=== PATIENT | female | born 1945 | race Caucasian/White ===

== ENCOUNTER 2016-10-04 04:33 | Emergency (ER) | payer OTHER ==
[2016-10-04 04:43] VITALS: PULSE 57; TEMP 98; BMI 28.3
--- NOTE | 2016-10-04 05:01 | PDOC ---
History of Present Illness - General Chief Complaint: Pain, Acute Stated Complaint: BURNING PAIN IN LEFT THIGH Time Seen by Provider: 10/04/16 04:40 - History of Present Illness Initial Comments: 10/04/16 05:06 This 71-year-old woman with a history of hypertension, hyperlipidemia and anemia presents with a one-day history of left knee paresthesias. Patient awakened yesterday with feeling of burning/tingling in the back and lateral aspect of the left knee. No history of trauma or overuse. She was at a picnic the day before but did not have any knowledge of insect bite. No swelling/ redness/increased warmth noted in the area. No previous history of neuropathy/ paresthesias or numbness in any area of her body. No recent surgery/period of inactivity/malignancy. Patient is not on any estrogen supplementation and is not a smoker. She has no history of thromboembolism No shortness of breath/cough. No recent fever/chills/muscle aches or weakness Patient states that she stopped her antihypertensive medication approximately a week ago (after taking it for a few years) because it gave her stomach discomfort. Past History - Past Medical History Allergies/Adverse Reactions: Allergies Allergy/AdvReac Type Severity Reaction Status Date / Time No Known Allergies Allergy Verified 10/04/16 04:34 Home Medications: Ambulatory Orders NK [No Known Home Medication] 10/04/16 Anemia: Yes (DIAGNOSED 06/25/14.) Asthma: No Cancer: No Cardiac Disorders: No CVA: No COPD: No CHF: No Dementia: No Diabetes: No GI Disorders: Yes (ACID REFLUX.) Disorders: No HTN: Yes (RECENTLY STARTED AMLODIPINE) Hypercholesterolemia: Yes Liver Disease: No Seizures: No Thyroid Disease: No - Surgical History Abdominal Surgery: No Appendectomy: Yes Cardiac Surgery: No Cholecystectomy: No GI Surgery: Yes (3 COLONIC POLYPS REMOVED: 07/01/14.) Lung Surgery: No Neurologic Surgery: No Orthopedic Surgery: Yes (LEFT KNEE ARTHROSCOPY 2011) - Psycho/Social/Smoking Cessation Hx Anxiety: No Suicidal Ideation: No Smoking Status: No Smoking History: Never smoked Have you smoked in the past 12 months: No Number of Cigarettes Smoked Daily: 0 Cigars Per Day: 0 Hx Alcohol Use: No Drug/Substance Use Hx: No Substance Use Type: None Hx Substance Use Treatment: No Review of Systems - Review of Systems Able to Perform ROS?: Yes Comments:: 12 point review of systems is negative except for what is noted in the history of present illness *Physical Exam - Physical Exam Comments: GENERAL: Adult female, mildly anxious but in no acute distress HEAD: Normal with no signs of trauma. EYES: PERRLA, EOMI, sclera anicteric, conjunctiva clear. ENT: Ears normal, nares patent, oropharynx clear without exudates. Moist mucous membranes. NECK: Normal range of motion, supple without lymphadenopathy, JVD, or masses. LUNGS: Breath sounds equal, clear to auscultation bilaterally. No wheezes, and no crackles. HEART:Regular rate and rhythm, normal S1 and S2 without murmur, rub or gallop. ABDOMEN:.normal bowel sounds No guarding,tenderness or rebound.No masses No distention. EXTREMITIES: Left lower extremity: Mild fullness left popliteal region; no palpable masses or cords; No calf or thigh masses/ cords or tenderness Foot is warm and dry with excellent capillary refill; dorsalis pedis pulses briskly palpable at midfoot Scattered spider veins but no prominent varicosities evident Right lower extremity: No significant edema/tenderness/ cords NEUROLOGICAL: Cranial nerves II through XII grossly intact. Normal speech. No focal neurological deficits. MUSCULOSKELETAL: Back non-tender to palpation, no CVA tenderness Medical Decision Making - Medical Decision Making 71-year-old woman presents with sudden onset of burning pain/paresthesias in the lateral aspect of her left popliteal region. No history of trauma and no evidence of superficial wounds/insect bite in the area. On exam, area is not acutely inflamed/edematous/warm to touch. There is a subtle fullness to the popliteal area but no direct tenderness or cords. There is no demonstrable decreased sensation in any area of the left leg. Because of the fullness in the popliteal region and symptoms suggestive of nerve compression, Doppler duplex ultrasound of the left lower extremity ordered to evaluate for DVT or Mahoney's cyst. 10/04/16 06:33 physical therapist technician was attempted to be contacted starting at approximately 4: 30 a.m.. After multiple telephone calls with voicemail messages, photo optics technician returned call at 6:10 AM 10/04/16 06:38 Patient being transported to ultrasound for her Doppler extremity study 10/04/16 07:14 Doppler ultrasound negative for DVT. Patient will be discharged with instructions to avoid tight fitting clothes around area of lower legs and strenuous exercise the next few days. She should follow up with her PMD, Dr. Gaxiola within the next 2-3 days. She should return to the emergency room if she has increased pain/swelling/ redness of the area *DC/Admit/Observation/Transfer Diagnosis at time of Disposition: Paresthesia of left leg - Discharge Dispostion Disposition: HOME Condition at time of disposition: Stable - Referrals Referrals: Barron Gaxiola MD [Primary Care Provider] - 2 Days - Patient Instructions Printed Discharge Instructions: DI for Leg Pain Additional Instructions: Avoid strenuous activities for the next few days Elevate left leg; use loosefitting clothes as discussed Warm compresses to the area of discomfort Tylenol as needed Call Dr. Gaxiola today to make an appointment within the next 2-3 days
[2016-10-04 06:36] VITALS: BP 156/73
== END 2016-10-04 07:14 | disposition home or self-care (01) ==
LOC: FER 04:33
DX: R20.2 Paresthesia of skin (principal); I10 Essential (primary) hypertension; E78.5 Hyperlipidemia, unspecified; D64.9 Anemia, unspecified; K21.9 Gastro-esophageal reflux disease without esophagitis
CPT/HCPCS: 93971-TC; 99281-25

== ENCOUNTER 2016-10-13 04:39 | Emergency (ER) | payer OTHER ==
[2016-10-13 04:54] VITALS: TEMP 98.6
--- NOTE | 2016-10-13 05:27 | PDOC ---
History of Present Illness - General Chief Complaint: Pain Stated Complaint: ABD PAIN Time Seen by Provider: 10/13/16 05:25 - History of Present Illness Initial Comments: 10/13/16 06:21 71F with pmh of HTN on amlodipine, HLD, anemia and hiatal hernia presents with generalized pruritus for a week that originated from under her left popliteal fossa, and right upper quadrant burning sensation since yesterday unchanged with movement and uncorrelated to prandial state.. Patient was found at triage to be hypertensive 203/68, pulse of 48 and afebrile at 98.[address] Gaxiola PCP and ass. last week. Claims BP is usually in the 130's when she takes it at home, but higher when in presence of doctors Upon retaking BP: Right ych=735/73 Left arm: 165/82 Denies headache, nausea, vomiting, sob, chest pain, palpitations, weakness, abdominal pain per se, dysuria, constipation or diarrhea. No family history of polycythemia vera. 10/13/16 07:00 Past History - Past Medical History Allergies/Adverse Reactions: Allergies Allergy/AdvReac Type Severity Reaction Status Date / Time No Known Allergies Allergy Verified 10/13/16 04:52 Home Medications: Ambulatory Orders NK [No Known Home Medication] 10/04/16 Anemia: Yes (DIAGNOSED 06/25/14.) Asthma: No Cancer: No Cardiac Disorders: No CVA: No COPD: No CHF: No Dementia: No Diabetes: No GI Disorders: Yes (ACID REFLUX.) Disorders: No HTN: Yes (RECENTLY STARTED AMLODIPINE) Hypercholesterolemia: Yes Liver Disease: No Seizures: No Thyroid Disease: No - Surgical History Abdominal Surgery: No Appendectomy: Yes Cardiac Surgery: No Cholecystectomy: No GI Surgery: Yes (3 COLONIC POLYPS REMOVED: 07/01/14.) Lung Surgery: No Neurologic Surgery: No Orthopedic Surgery: Yes (LEFT KNEE ARTHROSCOPY 2011) - Psycho/Social/Smoking Cessation Hx Anxiety: No Suicidal Ideation: No Smoking Status: No Smoking History: Never smoked Have you smoked in the past 12 months: No Number of Cigarettes Smoked Daily: 0 Cigars Per Day: 0 Information on smoking cessation initiated: No Hx Alcohol Use: No Drug/Substance Use Hx: No Substance Use Type: None Hx Substance Use Treatment: No Review of Systems - Review of Systems Constitutional: No: Chills, Diaphoresis, Fever, Night Sweats, Weakness, Unexplained wgt Loss HEENTM: No: Symptoms Reported, Blurred Vision, Recent change in vision Respiratory: No: Symptoms reported, Cough, Shortness of Breath, Productive cough , Hemoptysis Cardiac (ROS): No: Edema, Palpitations, Syncope, Chest Tightness ABD/GI: No: Abdominal Distended, Constipated, Diarrhea, Vomiting, Indigestion : No: Symptoms Reported *Physical Exam - Vital Signs Last Vital Signs Temp Pulse Resp BP Pulse Ox 98.6 F 48 L 14 203/68 100 10/13/16 04:52 10/13/16 04:52 10/13/16 04:52 10/13/16 04:52 10/13/16 04:52 - Physical Exam General Appearance: Yes: Nourished, Appropriately Dressed. No: Apparent Distress HEENT: positive: EOMI, BEBA, Normal ENT Inspection, Normal Voice. negative: Scleral Icterus (R), Scleral Icterus (L) Neck: positive: Trachea midline. negative: Tender, Lymphadenopathy (R), Lymphadenopathy (L) Respiratory/Chest: positive: Lungs Clear, Normal Breath Sounds. negative: Chest Tender, Respiratory Distress, Accessory Muscle Use, Rapid RR, Decreased Breath Sounds, Crackles, Rales, Rhonchi, Stridor, Wheezing, Hyperresonant, Dullness, Plerual Rub Cardiovascular: positive: Regular Rhythm, S1, S2, Bradycardia. negative: Edema Vascular Pulses: Carotid (R): 3+, Carotid (L): 3+, Dorsalis-Pedis (R): 3+, Doralis-Pedis (L): 3+ Gastrointestinal/Abdominal: positive: Normal Bowel Sounds Extremity: negative: Swelling, Erythema Integumentary: positive: Normal Color, Dry. negative: Cyanotic, Jaundice, Mottled, Clammy, Diaphoresis, Moist, Petechiae, Rash, Swelling, Ecchymosis, Bruising Neurologic: positive: Fully Oriented, Alert, Normal Mood/Affect, Normal Response ED Treatment Course - LABORATORY CBC & Chemistry Diagram: 10/13/16 06:23 10/13/16 06:23 Medical Decision Making - Medical Decision Making 10/13/16 07:01 71F with pmh of HTN on amlodipine, HLD, anemia and hiatal hernia presents with generalized pruritus for a week that originated from under her left popliteal fossa, and right upper quadrant burning sensation since yesterday unchanged with movement and uncorrelated to prandial state.. Patient was found at triage to be hypertensive 203/68, pulse of 48 and afebrile at 98.[address] Gaxiola PCP and ass. last week. Claims BP is usually in the 130's when she takes it at home, but higher when in presence of doctors Upon retaking BP: Right obk=129/73 Left arm: 165/82 Labs lytes, billirubin pending.\ CXR pending Gallbladder pending 10/13/16 07:33 coags, amylase, cardiac profile, d-dimer pending Patient signed out to Dr.Daniel De Souza. *DC/Admit/Observation/Transfer Diagnosis at time of Disposition: Hypertensive urgency
--- NOTE | 2016-10-13 06:11 | PDOC ---
Attending Attestation - HPI HPI: 10/13/16 06:18 The patient is a 71 year old female with a PMHx of anemia, GERD, HTN, hypercholesterolemia who presents to the ED with RUQ burning and diffuse rash. Patient states that the burning sensation sometimes radiates to her back. On arrival, patients BP was high, but patient reports her BP is usually high around doctors. She saw her PCP last week and BP was normal. Denies chest pain, SOB. Denies nausea, vomiting, diarrhea. <Tammy Freeman - Last Filed: 10/13/16 06:39> - Resident Resident Name: Chaka Santiago - ED Attending Attestation I have performed the following: I have examined & evaluated the patient, The case was reviewed & discussed with the resident, I agree w/resident's findings & plan, Exceptions are as noted - Physicial Exam PE: 10/13/16 06:15 *Physical Exam General Appearance: Yes: Appropriately Dressed. No: Apparent Distress, Intoxicated HEENT: positive: EOMI, BEBA, Normal ENT Inspection, Normal Voice, TMs Normal, Pharynx Normal. negative: Pale Conjunctivae, Photophobia, Scleral Icterus (R), Scleral Icterus (L) Neck: positive: Trachea midline, Normal Thyroid, Supple. negative: Tender, Rigid, Carotid bruit, Stridor, Lymphadenopathy (R), Lymphadenopathy (L), Thyromegaly Respiratory/Chest: positive: Lungs Clear, Normal Breath Sounds. negative: Chest Tender, Respiratory Distress, Accessory Muscle Use, Labored Respiration, RES, Crackles, Rales, Rhonchi, Stridor, Wheezing, Dullness Cardiovascular: positive: Regular Rhythm, Regular Rate, S1, S2. negative: Edema , JVD, Murmur, Bradycardia, Tachycardia Vascular Pulses: Dorsalis-Pedis (R): 2+, Doralis-Pedis (L): 2+ Gastrointestinal/Abdominal: positive: Normal Bowel Sounds, Flat, Soft. negative : Tender, Organomegaly, Pulsatile Mass, Increased Bowel Sounds, Decreased BS, Distended, Guarding, Rebound, Hernia, Hepatomegaly, Spleenomegaly Lymphatic: negative: Adenopathy, Tenderness Musculoskeletal: positive: Normal Inspection. negative: CVA Tenderness, Decreased Range of Motion Extremity: positive: Normal Capillary Refill, Normal Inspection, Normal Range of Motion, Pelvis Stable. negative: Tender, Pedal Edema, Swelling, Erythema Integumentary: positive: Normal Color, Dry, Warm. negative: Cyanotic, Erythema , Jaundice, Rash Neurologic: positive: visiting housekeeper II-XII NML intact, Fully Oriented, Alert, Normal Mood/ Affect, Motor Strength 5/5. negative: EOM Palsy, Facial Droop, Sensory Deficit - Medical Decision Making 10/13/16 19:48 Pt admitted for further evaluation and care <Jorge A Vital - Last Filed: 10/13/16 19:49>
[2016-10-13 06:59] LABS: BASOPHIL 0.8 % (0-2.0); MCH 30.5 pg (25.7-33.7); MCHC 32.8 g/dl (32.0-36.0); MEAN CELL VOLUME 93.1 fl (80-96); MEAN PLT VOLUME 9.1 fl (7.5-11.1); PLATELET COUNT 206 K/MM3 (134-434); RDW 14.3 % (11.6-15.6); WHITE BLOOD COUNT 4.9 K/mm3 (4.0-10.0)
[2016-10-13 07:37] LABS: ALBUMIN 3.7 g/dl (3.4-5.0); ANION GAP 9 (8-16); BILIRUBIN,DIRECT 0.1 mg/dL (0.0-0.2); BILIRUBIN,TOTAL 0.4 mg/dL (0.2-1.0); CALCIUM 9.3 mg/dL (8.5-10.1); CO2 27 mmol/L (21-32); CREATININE 0.6 mg/dL (0.55-1.02); GLUCOSE,RANDOM 96 mg/dL (74-106); SGOT/AST 17 U/L (15-37); SGPT/ALT 25 U/L (12-78); TOT PROT 7.6 g/dl (6.4-8.2)
[2016-10-13 07:40] LABS: ALK PHOS 109 U/L (45-117); TROPONIN I < 0.02 ng/ml (0.00-0.05)
[2016-10-13 07:41] LABS: INR 1.01 (0.82-1.09)
[2016-10-13 07:44] LABS: ACTIVATED PTT 33.9 SECONDS (26.9-34.4); D-DIMER < 200 ng/ml (<200-235)
--- NOTE | 2016-10-13 07:44 | PDOC ---
*Physical Exam - Vital Signs Last Vital Signs Temp Pulse Resp BP Pulse Ox 98.6 F 47 L 18 175/68 97 10/13/16 04:52 10/13/16 07:10 10/13/16 07:10 10/13/16 07:10 10/13/16 07:10 - Physical Exam Comments: 10/13/16 10:46 General Appearance: Nourished. No Apparent Distress HEENT: No Pharyngeal Erythema, Tonsillar Exudate, Tonsillar Erythema Respiratory/Chest: Lungs Clear, Normal Breath Sounds. No Crackles, Rales, Rhonchi, Wheezing Cardiovascular: Regular Rhythm, Regular Rate. No Murmur, Gallop/S3, Gallop/S4 Gastrointestinal/Abdominal: Normal Bowel Sounds, Soft. No Guarding, Rebound, Tenderness Extremity: Normal Capillary Refill Integumentary: Normal Color, Dry, Warm Neurologic: Fully Oriented, Alert, Normal Mood/Affect, Normal Response Neurologic: positive: Fully Oriented, Alert, Normal Mood/Affect, Normal Response ED Treatment Course - LABORATORY CBC & Chemistry Diagram: 10/13/16 06:23 10/13/16 06:23 - ADDITIONAL ORDERS Additional order review: 10/13/16 06:23 RBC 4.79 D MCV 93.1 D MCHC 32.8 RDW 14.3 D MPV 9.1 Neutrophils % 47.0 Lymphocytes % 35.8 Monocytes % 12.4 H Eosinophils % 4.0 Basophils % 0.8 Progress Note - Progress Note Progress Note: Patient is a 71 year old female who presents with URQ burning abdominal pain. Work up has been negative thus far with negative labs and a negative URQ US. Patient had discrepancies between her right and left arm BPs with elevated BP. Chest radiograph was negative for widened mediastinum or acute process. Patient is still reporting burning pain in her abdomen. Medical Decision Making - Medical Decision Making 10/13/16 10:49 Patient is having continued pain, however work up has been negative thus far. Her symptoms are most likely due to increased acid production or GERD symptoms. We will treat with zantac and reevaluate the patient's pain. BP was remeasured in both arms and has improved. 10/13/16 12:26 Patient has continued pain despite treatment with zantac. We will obtain a CT abdomen/pelvis to evaluate for a source of her pain. 10/13/16 14:19 CT abdomen/pelvis demonstrates a gastric volvulus requiring surgical evaluation. We discussed the case with Dr. Gaxiola who would like us to consult Dr. Facundo oviedo for surgical evaluation. We discussed the results with the patient and her family. We will contact surgery to determine if they believe admission for evaluation is needed. 10/13/16 15:34 We discussed the case with Dr. Oviedo's office. 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 Given that the patient is not toxic appearing and is stable with a negative work up thus far and has a clinically benign exam, we are comfortable agreeing that the patient doesn't have a gastric volvulus and her symptoms may be due to progression of her hiatal hernia to a paraesophageal hernia. We will contact Dr. Gaxiola again to discuss the case and see if he is comfortable with the patient being discharged with follow up. 10/13/16 16:38 We discussed the case with Dr. Gaxiola who would be more comfortable with admitting the patient for observation with GI consultation and for surgery to evaluate her in the hospital. We will give a dose of protonix here in the ED to help manage her symptoms and admit the patient for observation with GI and surgery consultation. We discussed the plan and all the conversations with the patient and they are agreeable to the plan. 10/13/16 18:01 Discussed the patient with GI. GI consultation made aware. 10/13/16 20:12 Patient signed out to Dr. Almanza. Pending admission for observation. *DC/Admit/Observation/Transfer Diagnosis at time of Disposition: Gastric volvulus - Referrals Referrals: Barron Gaxiola MD [Primary Care Provider] - - Patient Instructions - Post Discharge Activity - Attestations Physician Attestion: 10/13/16 20:13 I, Dr. Noam De Souza, attest that this document has been prepared under my direction and personally reviewed by me in its entirety. I further attest, that it accurately reflects all work, treatment, procedures and medical decision -making performed by me.
[2016-10-13 10:01] VITALS: BP 148/78; PULSE 51
[2016-10-13 10:05] LABS: AMYLASE 54 U/L (25-115)
[2016-10-13] MEDS ORDERED: RANITIDINE HCL 150 MG TABLET (FP) PO ONE (10:14)
[2016-10-13] MEDS ORDERED: RANITIDINE HCL 150 MG TABLET (FP) ONE (10:31)
--- NOTE | 2016-10-13 11:51 | EKG ---
Test Reason : Blood Pressure : / mmHG Vent. Rate : 048 BPM Atrial Rate : 048 BPM P-R Int : 166 ms QRS Dur : 104 ms QT Int : 498 ms P-R-T Axes : 055 -19 023 degrees QTc Int : 444 ms SINUS BRADYCARDIA OTHERWISE NORMAL ECG WHEN COMPARED WITH ECG OF 02-JUL-2014 10:51, NO SIGNIFICANT CHANGE WAS FOUND Confirmed by GABRIEL DIOP MD ([id number]) on 10/13/2016 11:51:00 AM Referred By: Confirmed By:GABRIEL DIOP MD
[2016-10-13] MEDS ORDERED: PANTOPRAZOLE SODIUM 40 MG in SODIUM CHLORIDE 100 ML IVPB ONE (16:21)
[2016-10-13] MEDS ORDERED: PANTOPRAZOLE SODIUM 100 ML IVPB ONE (16:43)
--- NOTE | 2016-10-13 21:03 | CONSULT ---
Consultation: REQUESTING PROVIDER: Dr. Gaxiola CONSULT REQUEST: We have been asked to medically evaluate this patient for Paraesophageal hernia. HISTORY OF PRESENT ILLNESS: Patient is a 71 year old female with a PMHx of HTN, HLD, anemia, hiatal hernia who presented to the ED with RUQ abdominal pain described as a burning sensation that started yesterday and gradually worsened today, which prompted this ED visit. Patient reports the pain is exacerbated after meals and any movement. Patient does report a history of hiatal hernia that her PCP follows up with. Patient in the ED was given Protonix and Zantac with significant relief of symptoms. Patient was initially found to have a BP of 203/68 but was rechecked and went down to 148/78 without any medications. Patient otherwise denies headaches, dizziness, nausea, vomiting, weakness, dysuria, hematuria, constipation, diarrhea, shortness of breath, palpitations. REVIEW OF SYSTEMS: (-) fever, chills, nausea, vomiting, chest pain, palpitations, lightheadedness, dizziness, constipation, seizures, dysuria, hematuria, frequency (+) RUQ abdominal pain PHYSICAL EXAMINATION Vital Signs - 24 hr 10/13/16 10/13/16 10/13/16 04:52 06:25 06:33 Temperature 98.6 F Pulse Rate 48 L Pulse Rate [ Right Apical] Pulse Rate [ Right] Respiratory 14 Rate Blood Pressure 203/68 00/0 Blood Pressure 165/82 [Left Arm] Blood Pressure 213/73 [Right Arm] O2 Sat by Pulse 100 Oximetry (%) 10/13/16 10/13/16 07:10 10:00 Temperature Pulse Rate Pulse Rate [ 47 L Right Apical] Pulse Rate [ 51 L Right] Respiratory 18 16 Rate Blood Pressure Blood Pressure 148/78 [Left Arm] Blood Pressure 175/68 177/65 [Right Arm] O2 Sat by Pulse 97 96 Oximetry (%) GENERAL: Awake, alert, and fully oriented, in no acute distress. HEAD: Normal with no signs of trauma. EYES: Pupils equal, round and reactive to light, extraocular movements intact, sclera anicteric, conjunctiva clear. EARS, NOSE, THROAT: Oropharynx clear without exudates. Moist mucous membranes. NECK: Normal range of motion. LUNGS: Breath sounds equal, clear to auscultation bilaterally. No wheezes, and no crackles. No accessory muscle use. HEART: Regular rate and rhythm, normal S1 and S2 without murmur, rub or gallop. ABDOMEN: Soft, nontender, not distended, normoactive bowel sounds, no guarding, no rebound, no masses. No hepatomegaly or splenomegaly. LOWER EXTREMITIES: 2+ pulses, warm, well-perfused. No calf tenderness. No peripheral edema. Laboratory Results - last 24 hr 10/13/16 10/13/16 10/13/16 06:23 06:23 06:23 WBC 4.9 RBC 4.79 D Hgb 14.6 D Hct 44.6 D MCV 93.1 D MCH 30.5 D MCHC 32.8 RDW 14.3 D Plt Count 206 D MPV 9.1 Neutrophils % 47.0 Lymphocytes % 35.8 Monocytes % 12.4 H Eosinophils % 4.0 Basophils % 0.8 INR 1.01 PTT (Actin FS) 33.9 D-Dimer < 200 Sodium 141 Potassium 4.2 Chloride 105 Carbon Dioxide 27 Anion Gap 9 BUN 12 Creatinine 0.6 Creat Clearance w eGFR > 60 Random Glucose 96 D Calcium 9.3 Total Bilirubin 0.4 Direct Bilirubin 0.1 AST 17 ALT 25 D Alkaline Phosphatase 109 Creatine Kinase 59 Troponin I < 0.02 Total Protein 7.6 Albumin 3.7 Total Amylase 54 ASSESSMENT/PLAN: Patient is a 71 year old female with a PMHx of HTN, HLD, anemia, hiatal hernia who presented for abdominal pain. CT abdomen/Pelvis done and revealed gastric volvulus and a surgical consult was placed for Dr. Facundo Castañeda for surgical evaluation. Dr. 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 Patient currently offers no complaints and reports resolution of symptoms. Vitals are stable, patient appears in no distress with no signs of infection. Medicine Attending, Dr. Ledesma discussed case with PCP Dr. Gaxiola about recommendations by surgery for outpatient follow up. Patient was advised to follow up as outpatient with surgery and to make an appointment by next week for monitoring and repeat CT if pain returns. Dispo: Thank you for this consultative opportunity. Visit type - Emergency Visit Emergency Visit: Yes Care time: The patient presented to the Emergency Department on the above date and was hospitalized for further evaluation of their emergent condition. - New Patient This patient is new to me today: Yes Date on this admission: 10/14/16 - Critical Care Critical Care patient: No
--- NOTE | 2016-10-13 21:04 | PDOC ---
*Physical Exam - Vital Signs Last Vital Signs Temp Pulse Resp BP Pulse Ox 98.6 F 51 L 16 148/78 96 10/13/16 04:52 10/13/16 10:00 10/13/16 10:00 10/13/16 10:00 10/13/16 10:00 - Physical Exam Comments: 10/13/16 22:33 GENERAL: Awake, alert, and fully oriented, in no acute distress HEAD: No signs of trauma, normocephalic, atraumatic EYES: PERRLA, EOMI, sclera anicteric, conjunctiva clear ENT: Auricles normal inspection, hearing grossly normal, nares patent, oropharynx clear without exudates. Moist mucosa NECK: Normal ROM, supple, no lymphadenopathy, JVD, or masses LUNGS: No distress, speaks full sentences, clear to auscultation bilaterally HEART: Regular rate and rhythm, normal S1 and S2, no murmurs, rubs or gallops, peripheral pulses normal and equal bilaterally. ABDOMEN: Soft, nontender, normoactive bowel sounds. No guarding, no rebound. No masses EXTREMITIES: Normal inspection, Normal range of motion, no edema. No clubbing or cyanosis. NEUROLOGICAL: Cranial nerves II through XII grossly intact. Normal speech, normal gait, no focal sensorimotor deficits SKIN: Warm, Dry, normal turgor, no rashes or lesions noted. ED Treatment Course - LABORATORY CBC & Chemistry Diagram: 10/13/16 06:23 10/13/16 06:23 - ADDITIONAL ORDERS Additional order review: Laboratory Results 10/13/16 06:23 Sodium 141 Potassium 4.2 Chloride 105 Carbon Dioxide 27 Anion Gap 9 BUN 12 Creatinine 0.6 Creat Clearance w eGFR > 60 Random Glucose 96 D Calcium 9.3 Total Bilirubin 0.4 Direct Bilirubin 0.1 AST 17 ALT 25 D Alkaline Phosphatase 109 Creatine Kinase 59 Troponin I < 0.02 Total Protein 7.6 Albumin 3.7 Total Amylase 54 10/13/16 06:23 RBC 4.79 D MCV 93.1 D MCHC 32.8 RDW 14.3 D MPV 9.1 Neutrophils % 47.0 Lymphocytes % 35.8 Monocytes % 12.4 H Eosinophils % 4.0 Basophils % 0.8 - RADIOLOGY Radiograph Interpretation: 10/13/16 22:40 EXAM#: TYPE/EXAM: RESULT: [id number] CT/ABDOMEN PELVIS CT WITH CONTR CT abdomen and pelvis with intravenous contrast Comparison studies : None CLINICAL HISTORY: Right upper quadrant abdominal pain Axial imaging completed with coronal and sagittal reformations after bolus injection 95 cc Omnipaque 350 with a power injector. Normal images through the lung bases with no infiltrate, nodule or effusion. No free air or pneumatosis with no signs of bowel obstruction, no abdominal wall or inguinal hernia identified Complete intrathoracic position of the stomach is identified with no evidence of gastric outlet obstruction, no gastric wall thickening and no edema or fluid within the hiatal hernia sac. Normal position of the duodenal bulb and region of pylorus, presence of gastric volvulus identified within the hernia sac. Surgical evaluation recommended. Diffuse hepatic steatosis with no enhancing lesion and normal region of gallbladder and bile ducts including pancreas and spleen Normal visualization of the large and small bowel with no ascites or mesenteric edema, no signs of small bowel obstruction Normal region of uterus and adnexa Normal midline urinary bladder No pelvic ascites Symmetric enhancement of both kidneys with no hydronephrosis or adrenal nodules identified No fluid in Link's pouch identified IMPRESSION: CT findings demonstrating intrathoracic position of the stomach with findings of gastric volvulus identified, surgical evaluation recommended. No evidence of small bowel obstruction. Clinical correlation. - Medications Given in the ED: ED Medications Discontinued Medications Generic Name Dose Route Start Last Admin Trade Name Freq PRN Reason Stop Dose Admin Pantoprazole Sodium 40 mg/ 100 mls @ 200 mls/hr 10/13/16 16:21 10/13/16 16:50 Sodium Chloride IVPB 10/13/16 16:50 200 mls/hr ONCE ONE Administration Ranitidine HCl 150 mg 10/13/16 10:14 10/13/16 10:30 Zantac - PO 10/13/16 10:15 150 mg ONCE ONE Administration Progress Note - Progress Note Progress Note: 71 yo F with h/o hiatal hernia who presents with abdominal pain. Pt ednorses 2 day h/o RUQ burning and absent associated symptoms per handoff by Dr. De Souza. Pt. received full laboratory and imaging workup. Currently stable, with 2/10 pain. Denies fevers/chills, hematemesis, blood in stool, urinary complaints. Medical Decision Making - Medical Decision Making 10/13/16 22:37 71 yo F with h/o hiatal hernia who presents with abdominal pain. Pt. reports 2 day h/o epigastric pain. HS and PE unremarkable. CBC, CMP, INR, D-dimer unremarkable. RUQ U/S unremarkable CT ABDOMEN/PELVIS: Impression CT findings demonstrating intrathoracic position of the stomach with findings of gastric volvulus identified, surgical evaluation recommended. No evidence of small bowel obstruction. Clinical correlation. Dr. Gaxiola discusses concern with pt. and believes that should be admitted for observation. Dr. Castañeda's interpreation of imaging is that pt. has progression of hiatal hernia to paraesophogeal hernia as opposed to volvulus. D/t pt's clinical stability and unremarkable physical exam it was discussed that pt. will be able to be managed on an outpatient basis. Dr. Ledesma ( hospitalist) discussed with Dr. Castañeda ( surgery) that pt. does not meet criteria for admission and it is agreed that pt. will be discharged and f/u as outpatient. Discussed with Dr. Smallwood ( surgery) that pt. can be discharged and follow up as outpatient with Dr. Castañeda *DC/Admit/Observation/Transfer Diagnosis at time of Disposition: Gastric volvulus - Discharge Dispostion Condition at time of disposition: Improved Admit: No - Prescriptions Prescriptions: Pantoprazole Sodium [Protonix] 40 mg PO DAILY #14 tablet.[address] RODRIGUEZ 40 mg - Patient Instructions Printed Discharge Instructions: DI for Hiatal Hernia, DI for Gastritis Additional Instructions: Please return to ED if you experience severe abdominal pain, lightheadedness, fevers/chills, or worsening symptoms. Take Protonix as prescribed. Please follow up with Dr. Castañeda as outpatient. Thank you for your patience. I apologize for the long wait and I hope your symptoms improve. Print Language: SWEDISH - Post Discharge Activity - Attestations Physician Attestion: I, Dr. Fidencio Almanza, attest that this document has been prepared under my direction and personally reviewed by me in its entirety. I further attest, that it accurately reflects all work, treatment, procedures and medical decision -making performed by me.
--- NOTE | 2016-10-14 10:27 | PN ---
Progress Note (short form) - Note Progress Note: Surgery Asked about management of paraesophageal hernia with possible gastric volvulus component yesterday. I advised that if patient required admission and inpatient urgent surgery, would need to be managed by thoracic surgery. Advised that if patient was deemed able to be managed as outpt we could evaluate electively for laparoscopic paraesophageal hernia repair. Dr. Stephen was later notified that the patient was being discharged and did not require inpatient urgent care.
== END 2016-10-13 22:25 | disposition home or self-care (01) ==
LOC: JER 04:39
PROC: 3E033GC Introduction of Other Therapeutic Substance into Peripheral Vein, Percutaneous Approach (ICD-10-PCS; principal; 2016-10-13)
DX: K44.9 Diaphragmatic hernia without obstruction or gangrene (principal); I10 Essential (primary) hypertension; E78.00 Pure hypercholesterolemia, unspecified; K21.9 Gastro-esophageal reflux disease without esophagitis
CPT/HCPCS: 36415; 71020-TC; 74177-TC; 76705-TC; 80053; 82150; 82248; 82550; 84484; 85025; 85379; 85610; 85730; 93005; 93010; 99283-25

== ENCOUNTER 2017-12-09 11:04 | Emergency (ER) | payer OTHER ==
[2017-12-09 11:20] VITALS: PULSE 54; TEMP 98.4; BMI 28.1
[2017-12-09] MEDS ORDERED: KETOROLAC TROMETHAMINE 30 MG/1 ML VIAL IM ONE (11:32)
[2017-12-09] MEDS ORDERED: KETOROLAC TROMETHAMINE 30 MG/1 ML VIAL ONE (11:35)
--- NOTE | 2017-12-09 11:38 | PDOC ---
History of Present Illness - General Chief Complaint: Pain Stated Complaint: LEFT KNEE PAIN Time Seen by Provider: 12/09/17 11:31 History Source: Patient Exam Limitations: No Limitations - History of Present Illness Initial Comments: 12/09/17 11:31 This is a 72 YOF with h/o bilateral knee osteoarthritis with arthroscopy in 2017 (follows with Dr. David), hiatal hernia repair, and HTN (on amlodipine) who p/w 2 weeks left knee pain and swelling, acutely worsened since last night. She was seen by Dr. David 8 days ago for the same knee pain and swelling. He did an X-ray showing osteoarthritis, gave her diclofenac cream and instructed her to ice the knee as well, and explained that she will need cortisone injections if those therapies did not work. She has been doing the therapies as instructed, and her pain level was tolerable at home until last night when it worsened significantly and kept her from sleeping. She has not taken any PO medications for the pain (states these medications upset her stomach). She has never had this happen to her knee prior to the past 2 weeks. She has not been overusing the knee (only has been walking around her home) and has not fallen or injured herself. She did not call Dr. David yesterday because her pain worsened after his office had already closed. She will be able to follow up with him on Monday, but needs help getting through the weekend. She denies f/c/n /v/d/c, headache, lightheadedness, dizziness, rash, n/t/w, calf pain, hip pain, or ankle pain. Past History - Past Medical History Allergies/Adverse Reactions: Allergies Allergy/AdvReac Type Severity Reaction Status Date / Time No Known Allergies Allergy Verified 12/09/17 11:11 Home Medications: Ambulatory Orders Amlodipine Besylate [Norvasc -] 7.5 mg PO DAILY 12/09/17 Cholecalciferol (Vitamin D3) [Vitamin D3] 1,000 unit PO DAILY 12/09/17 Diclofenac Sodium 1 applic TP DAILY 12/09/17 Multivit-Min/Iron/Folic/Lutein [Centrum Silver Women Tablet] 1 each PO DAILY Anemia: Yes (DIAGNOSED 06/25/14.) Asthma: No Cancer: No Cardiac Disorders: No CVA: No COPD: No CHF: No Dementia: No Diabetes: No GI Disorders: Yes (ACID REFLUX.) Disorders: No HTN: Yes Hypercholesterolemia: Yes Liver Disease: No Seizures: No Thyroid Disease: No Other medical history: ARTHRITIC KNEE - Surgical History Abdominal Surgery: Yes (HIATAL HERNIA) Appendectomy: Yes (AGE 13) Cardiac Surgery: No Cholecystectomy: No GI Surgery: Yes (3 COLONIC POLYPS REMOVED: 07/01/14.) Lung Surgery: No Neurologic Surgery: No Orthopedic Surgery: Yes (LEFT KNEE ARTHROSCOPY 2011) - Suicide/Smoking/Psychosocial Hx Smoking Status: No Smoking History: Never smoked Have you smoked in the past 12 months: No Number of Cigarettes Smoked Daily: 0 Cigars Per Day: 0 Hx Alcohol Use: Yes Drug/Substance Use Hx: No Substance Use Type: None Hx Substance Use Treatment: No Review of Systems - Review of Systems Able to Perform ROS?: Yes Constitutional: No: Chills, Fever, Unexplained wgt Loss HEENTM: No: Nose Congestion, Throat Pain Respiratory: No: Cough, Shortness of Breath Cardiac (ROS): No: Chest Pain, Palpitations ABD/GI: No: Constipated, Diarrhea, Nausea, Vomiting : No: Burning, Dysuria Musculoskeletal: Yes: Joint Pain, Joint Swelling. No: Back Pain, Neck Pain Integumentary: No: Bruising, Rash Neurological: No: Headache, Numbness, Tingling, Weakness, Dizziness Endocrine: No: Unexplained Weight Gain, Unexplained Weight Loss *Physical Exam - Vital Signs Last Vital Signs Temp Pulse Resp BP Pulse Ox 98.4 F 54 L 16 184/69 99 12/09/17 11:04 12/09/17 11:04 12/09/17 11:04 12/09/17 11:04 12/09/17 11:04 12/09/17 11:42 GENERAL: nontoxic and well-appearing older adult female accompanied by her , nourished, A/Ox4, no acute distress, speaking in full sentences, answers questions appropriately HEENT: PERRLA, EOMI, moist mucous membranes, no posterior pharyngeal erythema, no tonsillar swelling or exudates, no cervical lymphadenopathy NECK: No midline ttp, no spinal stepoff or deformity, full ROM, supple CARDIOVASCULAR: Regular rate and rhythm, normal S1S2, MGR, radial and DP pulses 2+ and symmetric, capillary refill <2 seconds, extremities warm and well- perfused LUNGS/RESPIRATORY: No respiratory distress, normal and symmetric chest movements during respirations, lungs CTA bilaterally, equal breath sounds, no cyanosis, no nail clubbing GI/ABDOMEN: Normal symmetric appearance, normoactive bowel sounds, soft, no tenderness to palpation, no midline pulsatile masses, no palpated organomegaly : No CVA tenderness BACK: No midline ttp or stepoff or deformity of thoracic or lumbar spine EXTREMITIES: Left knee with effusion +ballotment, negative Geetha test, negative anterior and posterior drawers, no ligamentous instability on varus and valgus stress, application of varus stress reproduces chief complaint on lateral joint line (patient points), distal pulses 2+, warm and well-perfused, no pitting edema, distal NV intact, no palpable marion cyst, no skin changes overlying the knee SKIN: Warm and dry, no pallor, no jaundice, no bruising, no rash, no skin breakdown, no cuts, no lesions NEUROLOGICAL: GCS 15, CN II-XII grossly intact, ambulating with normal gait, moving all extremities, 5/5 strength proximally and distally, no facial droop, no decreased sensation Medical Decision Making - Medical Decision Making 12/09/17 11:41 Pt p/w knee pain and swelling. Initial Vital Signs Temp Pulse Resp BP Pulse Ox 98.4 F 54 L 16 184/69 99 12/09/17 11:04 12/09/17 11:04 12/09/17 11:04 12/09/17 11:04 12/09/17 11:04 Exam: As noted in Physical Exam section. DDX IBNLT: effusion (e.g. 2/2 osteoarthritis, overuse), gout, pseudogout, prepatellar bursitis, septic arthritis, hemarthrosis, edema (e.g. from CHF exacerbation or PVD), gonorrhea, necrotizing soft tissue infection, DVT, superficial venous thrombosis, popliteal cyst (wwo rupture), etc. W/U ordered: None TX ordered: Toradol 30 mg IM Reassessment: Patient states pain improved, feels comfortable going home. Vital Signs Temperature 98.4 F 12/09/17 11:04 Pulse Rate 54 L 12/09/17 11:04 Respiratory Rate 16 12/09/17 11:04 Blood Pressure 153/66 12/09/17 11:56 O2 Sat by Pulse Oximetry (%) 99 12/09/17 11:04 DISCHARGE This patient has gotten significant relief of symptoms while in the ED. On last reassessment, vitals are wnl, pain is reasonably controlled, and exam is benign. Workup is not concerning for emergency-level pathology at this time. This patient is appropriate for discharge with close outpatient follow up. They are comfortable with this plan and will follow up Dr. David on Monday. Specific return precautions are discussed and they will come back to the ER if necessary. *DC/Admit/Observation/Transfer Diagnosis at time of Disposition: Osteoarthritis of left knee Qualifiers: Osteoarthritis type: unspecified Qualified Code(s): M17.12 - Unilateral primary osteoarthritis, left knee - Discharge Dispostion Disposition: HOME Condition at time of disposition: Improved Decision to Admit order: No - Referrals Referrals: Barron Gaxiola MD [Primary Care Provider] - Donte David MD [Staff Physician] - - Patient Instructions Printed Discharge Instructions: DI for Knee Pain Additional Instructions: YOU WERE SEEN IN THE ER FOR KNEE PAIN AND SWELLING. WE DID A THOROUGH HISTORY AND PHYSICAL EXAM. WE GAVE YOU A TORADOL PAIN MEDICATION INJECTION WHICH HELPED WITH THE PAIN HERE IN THE ER. AFTER OUR ASSESSMENT, WE DO NOT BELIEVE YOU ARE HAVING A MEDICAL EMERGENCY AT THIS TIME, AND WE BELIEVE YOU ARE SAFE TO GO HOME. USE RICE THERAPY (REST, ICE, COMPRESSION, ELEVATION) AND TAKE TYLENOL OR MOTRIN FOR THE PAIN. YOU MAY WISH TO TAKE AN ANTACID LIKE MAALOX IF THESE MEDICATIONS TEND TO BE HARD ON YOUR STOMACH. YOU MAY USE CRUTCHES AND/OR A KNEE BRACE FOR YOUR COMFORT LEVEL, BUT THIS IS NOT NECESSARY. PLEASE FOLLOW UP WITH DR. DAVID TO DISCUSS THE CORTISONE INJECTIONS AND FURTHER PAIN MANAGEMENT. CALL THEIR CLINIC SOON POSSIBLE ON MONDAY MORNING, TELL THEM YOU WERE SEEN IN THE ER, AND TELL THEM YOU NEED AN APPOINTMENT. IF YOU HAVE ANY NEW OR WORSENING SYMPTOMS, ESPECIALLY WORSENING OR SEVERE PAIN OF THE KNEE, REDNESS TO THE SKIN, INABILITY TO WALK, OR FEVERS, PLEASE COME BACK TO THE ER AT ANY TIME ( 24 HOURS A DAY). IF YOU ARE HAVING SEVERE OR LIFE THREATENING SYMPTOMS, OR SYMPTOMS THAT MAKE IT UNSAFE TO DRIVE OR HAVE SOMEONE DRIVE YOU, PLEASE CALL 911. - Post Discharge Activity
[2017-12-09 11:57] VITALS: BP 153/66
--- NOTE | 2017-12-09 12:01 | PDOC ---
Attending Attestation - Resident Resident Name: ShelleyToma - ED Attending Attestation I have performed the following: I have examined & evaluated the patient, The case was reviewed & discussed with the resident, I agree w/resident's findings & plan, Exceptions are as noted - HPI HPI: 12/09/17 11:57 72-year-old female history of hypertension and arthritis followed by Dr. Arzate the orthopedist here today complaining of left knee pain. Patient was seen in the office of the orthopedist one week ago at that time was started on diclofenac and recommended that if that fails she would get steroid injections into the joint. Suddenly today she started having worsening pain for the orthopedist but it was is. Patient denies any fevers chills pain is worse with weightbearing and bending she is currently using a cane for assistance states she does not take any medication for pain and she does not like taking pills. No injury no leg swelling noted - Physicial Exam PE: 12/09/17 11:59 Awake alert no acute distress cardiac exam is normal 30 murmurs rubs or gallops abdomen is soft and nontender lungs are clear bilaterally. Extremity exam reveals no peripheral edema. The left knee is noted for a small effusion mild tenderness to the inferior lateral aspect of the infrapatellar region no crepitus no ecchymosis no erythema no warmth hip and ankle is nontender full range of motion. 2+ DP pulses bilaterally - Medical Decision Making 12/09/17 12:00 80-year-old female with known arthritis here today with worsening left knee pain likely due to an arthritic effusion. There are no current signs of warmth or erythema to suggest infectious causes patient denies any trauma. Has had imaging of an x-ray one week ago therefore repeat imaging is not warranted today will follow up with Dr. Arzate her orthopedist in 48 hours given Toradol shot and recommended Tylenol every 6 hours as needed for pain
== END 2017-12-09 12:00 | disposition home or self-care (01) ==
LOC: FER 11:04
PROC: 3E0233Z Introduction of Anti-inflammatory into Muscle, Percutaneous Approach (ICD-10-PCS; principal; 2017-12-09)
DX: M17.12 Unilateral primary osteoarthritis, left knee (principal); K21.9 Gastro-esophageal reflux disease without esophagitis; I10 Essential (primary) hypertension; E78.00 Pure hypercholesterolemia, unspecified
CPT/HCPCS: 99282-25

== ENCOUNTER 2018-12-14 19:04 | Inpatient (IN) | payer OTHER ==
[2018-12-14] MEDS ORDERED: SODIUM CHLORIDE 1,000 ML IV STA (19:25)
--- NOTE | 2018-12-14 19:45 | PDOC ---
Attending Attestation - Resident Resident Name: Mora Kaplan - ED Attending Attestation I have performed the following: I have examined & evaluated the patient, The case was reviewed & discussed with the resident, I agree w/resident's findings & plan - HPI HPI: 12/14/18 20:36 Pt has had a cough and viral syndrome vs pneumonia x 2 days. She was exposed to a sick friend who was visiting. Pt has HTN and no other complaints. She has no fever but she has yello and clear mucus from her nose. She has nausea and has had nothing to eat or drink today. She is dehydrated. She was sitting at the kitchen table with her and she felt weak and slumped back. Near suncope, but she remained in the chair. No LOC and no trauma to head or neck. - Physicial Exam PE: 12/15/18 03:10 Agree with resident exam - Medical Decision Making 12/14/18 20:19 Hb is 15; pt appears to be dehydrated. 12/14/18 20:20 Chem pending 12/14/18 21:20 Chem and CBC normal. Exam normal Awaiting hydration and reeval; also awaiting CXR and head CT. 12/14/18 21:23 lactic acid normal also 12/14/18 21:24 Right perihilar infiltrate Pt will be treated with zithromax and ceftriaxone 12/14/18 21:46 Influenza negative 12/14/18 21:48 Pt desaturates off O2. She will be admitted for pneumonia and hypoxia. Heart Score/ECG Review - ECG Intrepretation Rhythm: Regular Rhythm - [place]: Normal - P and OK Delta Wave(s) Present: No WPW: No - QRS Poor R Wave Progression: No Q Wave Present: No - ST and T Early Repolarization: No Non Specific ST-T Wave changes: No Flattened T Waves: No Prolonged Q-T Interval: No - ECG Impressions Normal ECG: Yes Non-specific ST Elevation: No Ischemic Changes: No Bradycardia: Yes
[2018-12-14 20:11] LABS: BASO % 0.6 % (0-2.0); EOS % 1.8 % (0-4.5); HEMATOCRIT 45.5 % (32.4-45.2); HEMOGLOBIN 15.1 GM/dL (10.7-15.3); LYMPH % 9.2 % (8-40); MCH 30.7 pg (25.7-33.7); MCHC 33.1 g/dl (32.0-36.0); MEAN CELL VOLUME 92.6 fl (80-96); MEAN PLT VOLUME 9.3 fl (7.5-11.1); MONO % 8.3 % (3.8-10.2); NEUT % 80.1 % (42.8-82.8); PLATELET COUNT 207 K/MM3 (134-434); RBC 4.92 M/mm3 (3.60-5.2); RDW 13.8 % (11.6-15.6); WHITE BLOOD COUNT 7.2 K/mm3 (4.0-10.0)
--- NOTE | 2018-12-14 20:11 | PDOC ---
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 Pt says she was sitting at the table when she started feeling nauseous, lightheaded , flushed, felt her vision becoming blurry. says patient appeared pale and passed out for about 2 minutes. He did not witness any jerking or incontinence. Pt was not confused after the episode. She has not had a syncopal episode in the past. Pt states that she was feeling short of breath but it is improving. She recently returned from a trip to [place] 17d ago. Of note she was recently diagnosed with sinusitis with cough, chills and yellow mucous, and has been taking PCN which has caused her to have looser stools and decreased appetite. Denies chest pain, headache, dizziness, fevers, swelling, calf pain, recent surgery. Per EMS, O2 saturation in the 80s on RA PMD: Minor PMH: see hpi PSH: none Meds: amolodipine, Synthroid, Allergies: nkda Past History - Past Medical History Allergies/Adverse Reactions: Allergies Allergy/AdvReac Type Severity Reaction Status Date / Time No Known Allergies Allergy Verified 12/09/17 11:11 Home Medications: Ambulatory Orders Amlodipine Besylate [Norvasc -] 5 mg PO DAILY 12/09/17 Multivit-Min/Iron/Folic/Lutein [Centrum Silver Women Tablet] 1 each PO DAILY Amoxicillin/Potassium Clav [Amox-Clav 875-125 mg Tablet] 1 each PO BID 12/14/18 Levothyroxine [Synthroid -] 25 mcg PO DAILY 12/14/18 Anemia: Yes (DIAGNOSED 06/25/14.) Asthma: No Cancer: No Cardiac Disorders: No CVA: No COPD: No CHF: No Dementia: No Diabetes: No GI Disorders: Yes (ACID REFLUX.) Disorders: No HTN: Yes Hypercholesterolemia: Yes Liver Disease: No Seizures: No Thyroid Disease: No - Surgical History Abdominal Surgery: Yes (HIATAL HERNIA) Appendectomy: Yes (AGE 13) Cardiac Surgery: No Cholecystectomy: No GI Surgery: Yes (3 COLONIC POLYPS REMOVED: 07/01/14.) Lung Surgery: No Neurologic Surgery: No Orthopedic Surgery: Yes (LEFT KNEE ARTHROSCOPY 2011) - Psycho Social/Smoking Cessation Hx Smoking Status: No Smoking History: Never smoked Have you smoked in the past 12 months: No Number of Cigarettes Smoked Daily: 0 Cigars Per Day: 0 Hx Alcohol Use: No Drug/Substance Use Hx: No Substance Use Type: None Hx Substance Use Treatment: No Cardiac Specific PMH - Complaint Specific PMHX Pacemaker: No Review of Systems - Review of Systems Constitutional: Yes: Chills. No: Fever HEENTM: Yes: Nose Congestion. No: Eye Pain, Blurred Vision, Difficulty Swallowing Respiratory: Yes: Cough, Shortness of Breath Cardiac (ROS): Yes: Syncope. No: Chest Pain, Lightheadedness, Palpitations ABD/GI: No: Symptoms Reported : No: Symptoms Reported Musculoskeletal: No: Symptoms Reported Integumentary: No: Symptoms Reported *Physical Exam - Vital Signs Last Vital Signs Temp Pulse Resp BP Pulse Ox 98.8 F 58 L 20 140/53 L 96 12/15/18 06:10 12/15/18 06:10 12/15/18 06:10 12/15/18 06:10 12/15/18 01:59 - Physical Exam General Appearance: Yes: Nourished, Appropriately Dressed. No: Apparent Distress HEENT: positive: EOMI, BEBA, Nasal Congestion Neck: positive: Trachea midline, Supple. negative: Carotid bruit, Lymphadenopathy (R), Lymphadenopathy (L) Respiratory/Chest: positive: Rhonchi. negative: Chest Tender, Crackles, Rales, Stridor, Wheezing Cardiovascular: positive: Regular Rhythm, S1, S2, Bradycardia. negative: Edema , JVD, Murmur Vascular Pulses: Dorsalis-Pedis (R): 2+, Doralis-Pedis (L): 2+ Gastrointestinal/Abdominal: positive: Normal Bowel Sounds, Soft. negative: Tender Musculoskeletal: negative: CVA Tenderness Extremity: positive: Normal Capillary Refill. negative: Pedal Edema, Swelling, Calf Tenderness, Erythema Integumentary: positive: Normal Color, Dry, Warm Neurologic: positive: sanitary engineer II-XII NML intact, Fully Oriented, Alert, Normal Mood/ Affect, Normal Response, Motor Strength /5 ED Treatment Course - LABORATORY CBC & Chemistry Diagram: 12/14/18 20:00 12/14/18 20:00 - ADDITIONAL ORDERS Additional order review: Laboratory Results 12/14/18 12/14/18 12/14/18 20:00 20:00 20:00 PT with INR 12.90 INR 1.09 Sodium 139 Potassium 4.2 Chloride 105 Carbon Dioxide 28 Anion Gap 6 L BUN 12.6 Creatinine 0.7 Est GFR (CKD-EPI)AfAm 100.32 Est GFR (CKD-EPI)NonAf 86.56 Random Glucose 124 H Lactic Acid 1.0 Calcium 9.3 Total Bilirubin 0.5 AST 21 ALT 25 Alkaline Phosphatase 118 H Troponin I Total Protein 7.5 Albumin 3.8 12/14/18 20:00 PT with INR INR Sodium Potassium Chloride Carbon Dioxide Anion Gap BUN Creatinine Est GFR (CKD-EPI)AfAm Est GFR (CKD-EPI)NonAf Random Glucose Lactic Acid Calcium Total Bilirubin AST ALT Alkaline Phosphatase Troponin I < 0.02 Total Protein Albumin 12/14/18 20:00 RBC 4.92 MCV 92.6 MCHC 33.1 RDW 13.8 MPV 9.3 Neutrophils % 80.1 D Lymphocytes % 9.2 D Monocytes % 8.3 Eosinophils % 1.8 Basophils % 0.6 - RADIOLOGY Radiology Studies Ordered: Category Date Time Status HEAD CT WITHOUT CONTRAST [CT] Stat CT Scan 12/14/18 19:57 Completed CHEST X-RAY PORTABLE* [RAD] Stat Radiology 12/14/18 19:24 Completed - Medications Given in the ED: ED Medications Discontinued Medications Generic Name Dose Route Start Last Admin Trade Name Freq PRN Reason Stop Dose Admin Sodium Chloride 1,000 mls @ 1,000 mls/hr 12/14/18 19:25 12/14/18 20:18 Normal Saline - IV 12/14/18 20:24 1,000 mls/hr ASDIR STA Administration Azithromycin 500 mg/ Dextrose 250 mls @ 250 mls/hr 12/14/18 21:24 12/15/18 00 :16 IVPB 12/14/18 22:23 250 mls/hr ONCE ONE Administration Ceftriaxone Sodium 1 gm/ 50 mls @ 100 mls/hr 12/14/18 21:24 12/14/18 22:44 Dextrose IVPB 12/14/18 21:53 100 mls/hr ONCE ONE Administration Medical Decision Making - Medical Decision Making 12/14/18 20:11 73yo F with PMH of HTN, Hypothyroidism Arthritis BIBA for syncope 1h blintze roller. Pt says she was sitting at the table when she started feeling nauseous, lightheaded , flushed, felt her vision becoming blurry. says patient appeared pale and passed out for about 2 minutes. He did not witness any jerking or incontinence. Pt was not confused after the episode. She has not had a syncopal episode in the past. Pt states that she was feeling short of breath but it is improving. She recently returned from a trip to [place] 17d ago. Of note she was recently diagnosed with sinusitis and has been taking PCN which has caused her to have looser stools and decreased appetite. Denies chest pain, headache, dizziness, cough, fevers, swelling, calf pain, recent surgery. vitals; bradycardia, afebrile, normotensive. normal physical exam. ddx includes but not limited to bradydyrhythmia, sepsis, pe, pnaacs, ptx, pna, cardiogenic syncope, vasovagal/dehydration, hypoxia, cva/tia, basilar insufficiency will order labs, including trop, coags, cxr, ekg, ct head, ua/ucx willg iv fluids and measure orthostatic vital signs. 12/14/18 20:29 ekg: sinus bradycardia at 55bpm. pr 160, qtc 455. no jose or deperssions. no signs of acute ischemia. 12/14/18 21:22 12/14/18 21:30 12/14/18 21:49 on RA, pt saturates to high 80s. will benefit from admission to hospital. willl place on Rocephin and Azithromycin. Discharge - Discharge Information Problems reviewed: Yes Clinical Impression/Diagnosis: PNA (pneumonia) Qualifiers: Pneumonia type: due to unspecified organism Laterality: right Lung location: middle lobe of lung Qualified Code(s): J18.1 - Lobar pneumonia, unspecified organism Syncope Qualifiers: Syncope type: unspecified Qualified Code(s): R55 - Syncope and collapse Condition: Stable - Admission Yes - Follow up/Referral - Patient Discharge Instructions - Post Discharge Activity
[2018-12-14 20:17] LABS: INR 1.09 (0.83-1.09); PROTHROMBIN TIME (PATIENT) 12.9 SEC (9.7-13.0)
[2018-12-14 20:45] LABS: ALBUMIN 3.8 g/dl (3.4-5.0); BILIRUBIN,TOTAL 0.5 mg/dL (0.2-1); BLOOD UREA NITROGEN 12.6 mg/dL (7-18); CALCIUM 9.3 mg/dL (8.5-10.1); CREATININE 0.7 mg/dL (0.55-1.3); POTASSIUM 4.2 mmol/L (3.5-5.1); TOT PROT 7.5 g/dl (6.4-8.2)
[2018-12-14] MEDS ORDERED: CEFTRIAXONE 1 GM in DEXTROSE 5%-WATER - 50 ML IVPB ONE (21:24)
[2018-12-14] MEDS ORDERED: AZITHROMYCIN IVPB 500 MG in DEXTROSE 5%-WATER - 250 ML IVPB ONE (21:24)
[2018-12-14] MEDS ORDERED: AZITHROMYCIN IVPB 500 MG/250 ML BAG IVPB ONE (22:38)
[2018-12-14] MEDS ORDERED: cefTRIAXone SODIUM 1 GM VIAL ONE (22:39)
--- NOTE | 2018-12-14 22:41 | PN ---
Teaching Attending Note Name of Resident: Amador Barraza ATTENDING PHYSICIAN STATEMENT I saw and evaluated the patient. I reviewed the resident's note and discussed the case with the resident. I agree with the resident's findings and plan as documented. SUBJECTIVE: Patient is a 73 year old woman with a PMH of HTN, Hypothyroidism and Arthritis who presents with Syncope 1 hour prior to presentation. Patient says she was sitting at the table when she started feeling nauseous, lightheaded, flushed, felt her vision becoming blurry. says patient appeared pale and passed out for about 2 minutes. He did not witness any jerking or incontinence. Patient was not confused after the episode. She has not had a syncopal episode in the past. Patient states that she was feeling short of breath but it is improving. She recently returned from a trip to [place] 17 days ago. Of note she was recently diagnosed with sinusitis with cough, chills and yellow mucous, and has been taking Penicillin which has caused her to have looser stools and decreased appetite. Denies chest pain, headache, dizziness, fevers, swelling, calf pain or recent surgery. Per EMS, O2 saturation in the 80s on Room Air. OBJECTIVE: Alert Vital Signs Period Temp Pulse Resp BP Sys/Houser Pulse Ox Last 24 Hr 97.4 F 56 16 155/69 92-95 HEENT: No Jaundice, eye redness or discharge, PERRLA, EOMI. Normocephalic, atraumatic. External ears are normal and hearing is grossly intact. No nasal discharge. Neck: Supple, nontender. No palpable adenopathy or thyromegaly. No JVD Chest: Good effort. Expiratory wheezing. Clear to percussion. Heart: Regular. No S3, rub or murmur Abdomen: Not distended, soft, nontender and no HSM. No rebound or guarding. Normal bowel sounds. Ext: Peripheral pulses intact. No leg edema. Skin: Warm and dry. No petechiae, rash or ecchymosis. Neuro: Alert. Oriented x3. CN 2-12 grossly intact. Sensation grossly intact in all four extremities and DTR are symmetric. Psych: Appropriate mood and affect. Good insight. Home Medications Medication Instructions Recorded Amlodipine Besylate [Norvasc -] 5 mg PO DAILY 12/09/17 Multivit-Min/Iron/Folic/Lutein 1 each PO DAILY 12/09/17 [Centrum Silver Women Tablet] Amoxicillin/Potassium Clav 1 each PO BID 12/14/18 [Amox-Clav 875-125 mg Tablet] Levothyroxine [Synthroid -] 25 mcg PO DAILY 12/14/18 Abnormal Lab Results 12/14/18 12/14/18 20:00 20:00 Hct 45.5 H Anion Gap 6 L Random Glucose 124 H Alkaline Phosphatase 118 H ASSESSMENT AND PLAN: 1. Syncope -CXR shows cardiomegaly, pulmonary vascular congestion and increased hilar markings. Cause of syncope is unclear. No acute abnormality on head CT. Will get d-dimer, leg doppler and chest CTA. EKG shows sinus bradycardia with no significant ST-T wave changes. In view of weakness, chills and yellow sputum , may have atypical pneumonia but was desaturating to the 80s so will get a chest CTA to rule out PE. Will treat with rocephin, azithromycin, duoneb and prednisone. Will get ECHO, monitor on telemetry, get carotid doppler, neurology and Cardiology consult. Will continue comprehensive care for all of patients comorbid conditions. 2. Obesity Counseled on the risks associated with obesity. Will provide patient all the necessary assistance, counseling and positive reinforcement to facilitate weight loss. Consult leather seasoner. 3. Hypertension - Restart suitable outpatient antihypertensive drugs when clinically appropriate. Revise regimen to ensure [id number] excellent BP control and elementary school counselor patient on the injurious effects of uncontrolled hypertension. Nonpharmacologic measures to control hypertension like weight loss , salt restriction and exercise discussed. Importance of adherence to treatment regimen and attainment of normotension emphasized. 4. DVT prophylaxis - Lovenox 40 mg SQ q 24 hours. 5. Advance directives - Full code
[2018-12-15] MEDS ORDERED: ALBUTEROL SO4 2.5/IPRATROPIUM 0.5 INH SOL 3 ML VIAL.NEB. NEB PRN (00:44)
--- NOTE | 2018-12-15 01:00 | HP ---
CHIEF COMPLAINT: Syncope PCP: Dr. Gaxiola HISTORY OF PRESENT ILLNESS: Pt. is a 73 y.o. F w/ PMHx. of HTN, Hypothyroidism and Arthritis presents after syncopal episode. Pt. states that she has been having URI symptoms over the last few days, Pt. went to the Urgent Care and was prescribed "Penicillin," whereupon Pt. had increased rhinorhhea and subsequent development of cough with clear yellowish sputum production. At home about an hour before ED arrival Pt. was eating at the table with when she suddenly "passed out" for a couple minutes after feeling dizzy, nauseous and lightheaded. Pt. denies any head trauma or seizure like activity. Pt. was no confused on reawakening. Pt. states that she believes she had an echo with Dr. Cerda last year because of a leaky valve. Per Pt. her last echo was unremarkable otherwise. Pt. endorses chills and increased generalized weakness Pt. denies any current fever, chest pain, calf pain, or dizziness. Pt. endorses a sick contact who came back with her from [place] and had similar symptoms as she herself. Pt. states she received the Pneumovaxx shot a couple years ago. ER course was notable for: (1) CXR, BCx., Flu Neg, IVf (2) EKG, Ceftriaxone, Azithromycin (3) Recent Travel: [place] 17 days ago PAST MEDICAL HISTORY: As above PAST SURGICAL HISTORY: Esophageal Hernia Repair, b/l Knee surgeries (greater than 5 years ago) Social History: Smoking: Denies Alcohol: Shot glass of wine with dinner Drugs: Denies Allergies No Known Allergies Allergy (Verified 12/09/17 11:11) HOME MEDICATIONS: Home Medications Medication Instructions Recorded Amlodipine Besylate [Norvasc -] 5 mg PO DAILY 12/09/17 Multivit-Min/Iron/Folic/Lutein 1 each PO DAILY 12/09/17 [Centrum Silver Women Tablet] Amoxicillin/Potassium Clav 1 each PO BID 12/14/18 [Amox-Clav 875-125 mg Tablet] Levothyroxine [Synthroid -] 25 mcg PO DAILY 12/14/18 REVIEW OF SYSTEMS As above PHYSICAL EXAMINATION Vital Signs - 24 hr 12/14/18 12/14/18 12/15/18 19:25 20:07 00:17 Temperature 97.4 F L 98.8 F Pulse Rate 56 L Pulse Rate [ 57 L Right Radial] Respiratory 16 18 Rate Blood Pressure 155/69 Blood Pressure 145/67 [Right Arm] O2 Sat by Pulse 92 L 95 97 Oximetry (%) GENERAL: Awake, alert, and fully oriented, in no acute distress. HEAD: Normal with no signs of trauma. frontal and maxillary sinus tenderness EYES: Pupils equal, round and reactive to light, extraocular movements intact, sclera anicteric, conjunctiva clear. EARS, NOSE, THROAT: Ears normal, nares patent, oropharynx clear without exudates. Moist mucous membranes. NECK: Normal range of motion, supple without lymphadenopathy, JVD, or masses. LUNGS: No crackles but coarse breath sounds and wheezes in RML. No accessory muscle use. HEART: Regular rate and rhythm, normal S1 and S2 with ?murmur in R. 2nd intercostal space? ABDOMEN: Soft, nontender, not distended, normoactive bowel sounds, no guarding, no rebound, no masses. MUSCULOSKELETAL: Normal range of motion at all joints. No bony deformities or tenderness. No CVA tenderness. UPPER EXTREMITIES: warm, well-perfused. No cyanosis. No clubbing. No peripheral edema. LOWER EXTREMITIES: 2+ dorsal pedal pulses, warm, well-perfused. No calf tenderness. No peripheral edema. NEUROLOGICAL: Cranial nerves grossly II-XII intact. Normal speech. Gait not assessed PSYCHIATRIC: Cooperative. Good eye contact. Appropriate mood and affect. SKIN: Warm, dry, normal turgor, no rashes or lesions noted, normal capillary refill. Laboratory Results - last 24 hr 12/14/18 12/14/18 12/14/18 20:00 20:00 20:00 WBC 7.2 RBC 4.92 Hgb 15.1 Hct 45.5 H MCV 92.6 MCH 30.7 MCHC 33.1 RDW 13.8 Plt Count 207 MPV 9.3 Absolute Neuts (auto) 5.8 Neutrophils % 80.1 D Lymphocytes % 9.2 D Monocytes % 8.3 Eosinophils % 1.8 Basophils % 0.6 Nucleated RBC % 0 PT with INR INR Sodium 139 Potassium 4.2 Chloride 105 Carbon Dioxide 28 Anion Gap 6 L BUN 12.6 Creatinine 0.7 Est GFR (CKD-EPI)AfAm 100.32 Est GFR (CKD-EPI)NonAf 86.56 Random Glucose 124 H Lactic Acid Calcium 9.3 Total Bilirubin 0.5 AST 21 ALT 25 Alkaline Phosphatase 118 H Troponin I < 0.02 Total Protein 7.5 Albumin 3.8 Influenza A (Rapid) Influenza B (Rapid) 12/14/18 12/14/18 12/14/18 20:00 20:00 21:01 WBC RBC Hgb Hct MCV MCH MCHC RDW Plt Count MPV Absolute Neuts (auto) Neutrophils % Lymphocytes % Monocytes % Eosinophils % Basophils % Nucleated RBC % PT with INR 12.90 INR 1.09 Sodium Potassium Chloride Carbon Dioxide Anion Gap BUN Creatinine Est GFR (CKD-EPI)AfAm Est GFR (CKD-EPI)NonAf Random Glucose Lactic Acid 1.0 Calcium Total Bilirubin AST ALT Alkaline Phosphatase Troponin I Total Protein Albumin Influenza A (Rapid) Negative Influenza B (Rapid) Negative ASSESSMENT/PLAN: Pt. is a 73 y.o. F w/ PMHx. of HTN, Hypothyroidism and Arthritis presents after syncopal episode in setting of URI infection. #Syncope while eating Head CT- f/u orthostatic VS f/u echo- if unrevealing post-prandial syncope? f/u Carotid US f/u UA Cardiology consult (Dr. Cerda) appreciated #URI Flu- LA - c/w Ceftriaxone and Azithromycin Flu vaccine given started Prednisone 40mg Head CT showed septum deviated to left, if URI symptoms worsen low threshold for Facial bones CT to evaluate sinuses #R/o PE D-dimer: 886 (elevated after age adjustment) f/u CTA CXR: mild cardiomegaly w/ interval mild pulmonary venous congestion #HTN c/w Norvasc #Hypothyroidism c/w Synthroid 25 mcg #FEN no IVF monitor lytes and replete as needed Na restricted diet #DVT Ppx. Lovenox 40 SQ Visit type - Emergency Visit Emergency Visit: Yes ED Registration Date: 12/14/18 Care time: The patient presented to the Emergency Department on the above date and was hospitalized for further evaluation of their emergent condition. - New Patient This patient is new to me today: Yes Date on this admission: 12/14/18 - Critical Care Critical Care patient: No ATTENDING PHYSICIAN STATEMENT I saw and evaluated the patient. I reviewed the resident's note and discussed the case with the resident. I agree with the resident's findings and plan as documented. SUBJECTIVE: OBJECTIVE: ASSESSMENT AND PLAN:
[2018-12-15 02:18] VITALS: BMI 27.8
[2018-12-15 07:11] LABS: BASO % 0.5 % (0-2.0); EOS % 4.4 % (0-4.5); HEMATOCRIT 38.8 % (32.4-45.2); LYMPH % 23.6 % (8-40); MCHC 33.6 g/dl (32.0-36.0); MEAN CELL VOLUME 92.4 fl (80-96); MEAN PLT VOLUME 9.6 fl (7.5-11.1); MONO % 11.5 % (3.8-10.2); PLATELET COUNT 189 K/MM3 (134-434); RDW 13.7 % (11.6-15.6)
[2018-12-15 07:48] LABS: BLOOD UREA NITROGEN 9.8 mg/dL (7-18); CALCIUM 8.9 mg/dL (8.5-10.1); CREATININE 0.6 mg/dL (0.55-1.3)
[2018-12-15] MEDS ORDERED: DEXTROSE 5%-WATER - 50 ML IVPB ONE (08:10)
[2018-12-15] MEDS ORDERED: cefTRIAXone SODIUM 1 GM VIAL ONE (08:10)
[2018-12-15 08:58] LABS: N-TERMINAL BNP 150.5 pg/ml (5-125)
[2018-12-15] MEDS: predniSONE 20 MG TABLET (UD) PO SCH (08:59)
[2018-12-15] MEDS: ENOXAPARIN NA (PORCINE) 40 MG/0.4 ML DISP.SYRIN SQ SCH (09:00)
[2018-12-15] MEDS ORDERED: CEFTRIAXONE 1 GM in DEXTROSE 5%-WATER - 50 ML IVPB SCH (10:00)
[2018-12-15] MEDS ORDERED: AZITHROMYCIN IVPB 500 MG/250 ML BAG IVPB SCH (10:00)
[2018-12-15] MEDS ORDERED: FLU VACCINE QUAD 60 MCG/0.5 ML (MDV 19-20) IM ONE (10:00)
[2018-12-15] MEDS ORDERED: HEPARIN NA (PORCINE) 5,000 UNITS/ML 1ML VIAL SQ SCH (10:00)
--- NOTE | 2018-12-15 10:02 | PN ---
Physical Exam: SUBJECTIVE: Patient seen and examined, still feels weak, light headed, poor oral intake. No worsening or new symptoms. OBJECTIVE: Vital Signs Period Temp Pulse Resp BP Sys/Houser Pulse Ox Last 24 Hr 97.4 F-98.9 F 51-59 16-20 123-157/53-78 92-97 Intake & Output 12/12/18 12/13/18 12/14/18 12/15/18 23:59 23:59 23:59 23:59 Intake Total 350 Balance 350 Weight 341 lb 11.464 oz 152 lb General: lying in bed in no acute distress HEENT: PERRL, EOMI, normocephalic, atraumatic Neck: soft, supple, no JVD Chest: CTAb, no rales or wheezing Abdomen: soft, NT, ND, pos bowel sounds Extremities: no pedal edema or calf tenderness Psych: pleasant, co-operative Laboratory Results - last 24 hr 12/14/18 12/14/18 12/14/18 20:00 20:00 20:00 WBC 7.2 RBC 4.92 Hgb 15.1 Hct 45.5 H MCV 92.6 MCH 30.7 MCHC 33.1 RDW 13.8 Plt Count 207 MPV 9.3 Absolute Neuts (auto) 5.8 Neutrophils % 80.1 D Lymphocytes % 9.2 D Monocytes % 8.3 Eosinophils % 1.8 Basophils % 0.6 Nucleated RBC % 0 PT with INR INR D-Dimer Sodium 139 Potassium 4.2 Chloride 105 Carbon Dioxide 28 Anion Gap 6 L BUN 12.6 Creatinine 0.7 Est GFR (CKD-EPI)AfAm 100.32 Est GFR (CKD-EPI)NonAf 86.56 Random Glucose 124 H Lactic Acid Calcium 9.3 Magnesium Total Bilirubin 0.5 AST 21 ALT 25 Alkaline Phosphatase 118 H Troponin I < 0.02 B-Natriuretic Peptide Total Protein 7.5 Albumin 3.8 Influenza A (Rapid) Influenza B (Rapid) 12/14/18 12/14/18 12/14/18 20:00 20:00 21:01 WBC RBC Hgb Hct MCV MCH MCHC RDW Plt Count MPV Absolute Neuts (auto) Neutrophils % Lymphocytes % Monocytes % Eosinophils % Basophils % Nucleated RBC % PT with INR 12.90 INR 1.09 D-Dimer Sodium Potassium Chloride Carbon Dioxide Anion Gap BUN Creatinine Est GFR (CKD-EPI)AfAm Est GFR (CKD-EPI)NonAf Random Glucose Lactic Acid 1.0 Calcium Magnesium Total Bilirubin AST ALT Alkaline Phosphatase Troponin I B-Natriuretic Peptide Total Protein Albumin Influenza A (Rapid) Negative Influenza B (Rapid) Negative 12/15/18 12/15/18 12/15/18 01:45 01:46 05:52 WBC 6.0 RBC 4.20 Hgb 13.0 Hct 38.8 MCV 92.4 MCH 31.0 MCHC 33.6 RDW 13.7 Plt Count 189 MPV 9.6 Absolute Neuts (auto) 3.6 Neutrophils % 60.0 D Lymphocytes % 23.6 D Monocytes % 11.5 H Eosinophils % 4.4 D Basophils % 0.5 Nucleated RBC % 0 PT with INR INR D-Dimer 886 H Sodium Potassium Chloride Carbon Dioxide Anion Gap BUN Creatinine Est GFR (CKD-EPI)AfAm Est GFR (CKD-EPI)NonAf Random Glucose Lactic Acid 1.0 Calcium Magnesium Total Bilirubin AST ALT Alkaline Phosphatase Troponin I B-Natriuretic Peptide Total Protein Albumin Influenza A (Rapid) Influenza B (Rapid) 12/15/18 05:52 WBC RBC Hgb Hct MCV MCH MCHC RDW Plt Count MPV Absolute Neuts (auto) Neutrophils % Lymphocytes % Monocytes % Eosinophils % Basophils % Nucleated RBC % PT with INR INR D-Dimer Sodium 141 Potassium 4.0 Chloride 109 H Carbon Dioxide 25 Anion Gap 6 L BUN 9.8 Creatinine 0.6 Est GFR (CKD-EPI)AfAm 105.54 Est GFR (CKD-EPI)NonAf 91.06 Random Glucose 118 H Lactic Acid Calcium 8.9 Magnesium 2.0 Total Bilirubin AST ALT Alkaline Phosphatase Troponin I B-Natriuretic Peptide 150.5 H Total Protein Albumin Influenza A (Rapid) Influenza B (Rapid) Active Medications Generic Name Dose Route Start Last Admin Trade Name Freq PRN Reason Stop Dose Admin Albuterol/Ipratropium 1 amp 12/15/18 00:44 Duoneb - NEB RQID PRN SHORTNESS OF BREATH Enoxaparin Sodium 40 mg 12/15/18 10:00 12/15/18 09:00 Lovenox - SQ 40 mg DAILY ISIDRO Administration Azithromycin 500 mg in 250 mls @ 250 mls/hr 12/15/18 10:00 12/15/18 08:59 Zithromax 500mg Ivpb (Pre-Docked) IVPB 250 mls/hr DAILY ISIDRO Administration Ceftriaxone Sodium 1 gm/ 50 mls @ 100 mls/hr 12/15/18 10:00 12/15/18 08:59 Dextrose IVPB 100 mls/hr DAILY ISIDRO Administration Protocol Influenza Virus Vaccine Quadrival 60 mcg 12/15/18 10:00 Flulaval Quad [id number] IM 12/15/18 10:01 .ONCE ONE Prednisone 40 mg 12/15/18 10:00 12/15/18 08:59 Deltasone - PO 40 mg DAILY ISIDRO Administration Home Medications Medication Instructions Recorded Amlodipine Besylate [Norvasc -] 5 mg PO DAILY 12/09/17 Multivit-Min/Iron/Folic/Lutein 1 each PO DAILY 12/09/17 [Centrum Silver Women Tablet] Amoxicillin/Potassium Clav 1 each PO BID 12/14/18 [Amox-Clav 875-125 mg Tablet] Levothyroxine [Synthroid -] 25 mcg PO DAILY 12/14/18 CXR results and images reviewed ASSESSMENT/PLAN: 73 yof with PMhx of HTN, Hypothyroidism, Arthritis, Anemia, Hiatal hernia, admitted with syncope while eating in the setting of recent URI and poor oral intake. -Syncope, while eating, ?vasvagal compounded by hypovolumia from recent poor oral intake/URI like illness, r/o arrhythmia, less likely neurological etiology , r/o PE given recen travel, hypoxia -Hypoxia, ?from URI like illness with bronchitis, r/o PE given recent travel, though low suspicion -URI like illness with bronchitis -Congestive changes on CXR -HTN -Hypothyroidism -Anemia -Hiatal hernia -Arthritis Plan: Orthostatics neg. ACS ruled out. Telemetry. CXR with ?congestive changes, however patient clinically looks volume depleted, h/o poor appetite/oral intake over the last few days. BNP noted. Follow up CTA chest. Start gentle hydration if no concerns. Cardiology consulted. 2D echo. Influenza screen neg. Check RVP. Taper abx if CTA chest neg for infiltrate or concerns. Short prednisone course. Resume amlodipine, continue levothyroxine. GIPPX protonix DVTPPX lovenox PT eval Dispo in 24-48 hours if improved and work up non concerning. Discussed with patient and nursing, all questions answered. Visit type - Emergency Visit Emergency Visit: Yes ED Registration Date: 12/14/18 Care time: The patient presented to the Emergency Department on the above date and was hospitalized for further evaluation of their emergent condition. - New Patient This patient is new to me today: Yes Date on this admission: 12/15/18 - Critical Care Critical Care patient: No - Discharge Referral Referred to [facility] No
--- NOTE | 2018-12-15 11:28 | CON.CARD ---
Cardiology Consult (text) - Consultation Consultation Note: cc: syncope hpi: 73 f hx htn here with syncope. Past few days has noticed productive cough , body aches, nasal congestion. Has not been eating or drinking much due to nausea. yesterday sitting at table at home and felt flush, nausea and passed out in chair. said she had loc for 1-2 mins. She awoke and felt fine. No hx of this. No recurrent episodes. No cp sob palps pnd orthopnea le edema. pmh: per hpi psh: hernia social: no tob fam: no premature cad, scd ros: per hpi; all others nl meds: Home Medications Medication Instructions Recorded Amlodipine Besylate [Norvasc -] 5 mg PO DAILY 12/09/17 Multivit-Min/Iron/Folic/Lutein 1 each PO DAILY 12/09/17 [Centrum Silver Women Tablet] Amoxicillin/Potassium Clav 1 each PO BID 12/14/18 [Amox-Clav 875-125 mg Tablet] Levothyroxine [Synthroid -] 25 mcg PO DAILY 12/14/18 pe: Vital Signs Period Temp Pulse Resp BP Sys/Houser Pulse Ox Last 24 Hr 97.4 F-98.9 F 51-59 16-20 123-157/53-78 92-97 nad no jvd rrr s1s2 no mrg ctabl nl eff aao3 no le e/c/c abd nt nd pos bs no jaundice diaphoresis pos dp pt no carotid bruit Laboratory Last Values WBC 6.0 K/mm3 (4.0-10.0) 12/15/18 05:52 RBC 4.20 M/mm3 (3.60-5.2) 12/15/18 05:52 Hgb 13.0 GM/dL (10.7-15.3) 12/15/18 05:52 Hct 38.8 % (32.4-45.2) 12/15/18 05:52 MCV 92.4 fl (80-96) 12/15/18 05:52 MCH 31.0 pg (25.7-33.7) 12/15/18 05:52 MCHC 33.6 g/dl (32.0-36.0) 12/15/18 05:52 RDW 13.7 % (11.6-15.6) 12/15/18 05:52 Plt Count 189 K/MM3 (134-434) 12/15/18 05:52 MPV 9.6 fl (7.5-11.1) 12/15/18 05:52 Absolute Neuts (auto) 3.6 K/mm3 (1.5-8.0) 12/15/18 05:52 Neutrophils % 60.0 % (42.8-82.8) D 12/15/18 05:52 Lymphocytes % 23.6 % (8-40) D 12/15/18 05:52 Monocytes % 11.5 % (3.8-10.2) H 12/15/18 05:52 Eosinophils % 4.4 % (0-4.5) D 12/15/18 05:52 Basophils % 0.5 % (0-2.0) 12/15/18 05:52 Nucleated RBC % 0 % (0-0) 12/15/18 05:52 PT with INR 12.90 SEC (9.7-13.0) 12/14/18 20:00 INR 1.09 (0.83-1.09) 12/14/18 20:00 D-Dimer 886 ng/ml (0-500) H 12/15/18 01:45 Sodium 141 mmol/L (136-145) 12/15/18 05:52 Potassium 4.0 mmol/L (3.5-5.1) 12/15/18 05:52 Chloride 109 mmol/L (98-107) H 12/15/18 05:52 Carbon Dioxide 25 mmol/L (21-32) 12/15/18 05:52 Anion Gap 6 MMOL/L (8-16) L 12/15/18 05:52 BUN 9.8 mg/dL (7-18) 12/15/18 05:52 Creatinine 0.6 mg/dL (0.55-1.3) 12/15/18 05:52 Est GFR (CKD-EPI)AfAm 105.54 12/15/18 05:52 Est GFR (CKD-EPI)NonAf 91.06 12/15/18 05:52 Random Glucose 118 mg/dL (74-106) H 12/15/18 05:52 Lactic Acid 1.0 mmol/L (0.4-2.0) 12/15/18 01:46 Calcium 8.9 mg/dL (8.5-10.1) 12/15/18 05:52 Magnesium 2.0 mg/dL (1.8-2.4) 12/15/18 05:52 Total Bilirubin 0.5 mg/dL (0.2-1) 12/14/18 20:00 AST 21 U/L (15-37) 12/14/18 20:00 ALT 25 U/L (13-61) 12/14/18 20:00 Alkaline Phosphatase 118 U/L (45-117) H 12/14/18 20:00 Troponin I < 0.02 ng/ml (0.00-0.05) 12/14/18 20:00 B-Natriuretic Peptide 150.5 pg/ml (5-125) H 12/15/18 05:52 Total Protein 7.5 g/dl (6.4-8.2) 12/14/18 20:00 Albumin 3.8 g/dl (3.4-5.0) 12/14/18 20:00 Influenza A (Rapid) Negative (Negative) 12/14/18 21:01 Influenza B (Rapid) Negative (Negative) 12/14/18 21:01 tele: sr ecg: sr nl intervals no ischemic changes cxr: no sig chf a/p: 73 f hx htn here with syncope. syncope: -seems vasovagal due to decreased po intake -cont ivfs, tx of URI/PNA -no signs acs, arrhythmia, chf -cont tele, check echo, check ortho vitals htn: -cont home norvasc
[2018-12-15 11:32] LABS: URINE APPEARANCE CLEAR; URINE BILIRUBIN NEGATIVE (NEGATIVE); URINE COLOR YELLOW; URINE GLUCOSE (UA) NEGATIVE (NEGATIVE); URINE KETONE NEGATIVE (NEGATIVE); URINE LEUK ESTERASE NEGATIVE (NEGATIVE); URINE NITRITE NEGATIVE (NEGATIVE); URINE PROTEIN NEGATIVE (NEGATIVE); URINE UROBILINOGEN 0.2 mg/dL (0.2-1.0)
[2018-12-15] MEDS ORDERED: SODIUM CHLORIDE 0.45% 1,000 ML IV SCH (13:00)
[2018-12-16 07:21] LABS: BASO % 0.4 % (0-2.0); EOS % 0.9 % (0-4.5); HEMATOCRIT 39.9 % (32.4-45.2); HEMOGLOBIN 13.2 GM/dL (10.7-15.3); LYMPH % 26.9 % (8-40); MCH 30.7 pg (25.7-33.7); MCHC 33.2 g/dl (32.0-36.0); MEAN CELL VOLUME 92.6 fl (80-96); MEAN PLT VOLUME 9.6 fl (7.5-11.1); MONO % 11.4 % (3.8-10.2); NEUT % 60.4 % (42.8-82.8); PLATELET COUNT 207 K/MM3 (134-434); RBC 4.31 M/mm3 (3.60-5.2); WHITE BLOOD COUNT 7.2 K/mm3 (4.0-10.0)
[2018-12-16 08:05] LABS: ALBUMIN 3.2 g/dl (3.4-5.0); BILIRUBIN,TOTAL 0.4 mg/dL (0.2-1); BLOOD UREA NITROGEN 11.5 mg/dL (7-18); CALCIUM 9.3 mg/dL (8.5-10.1); CREATININE 0.6 mg/dL (0.55-1.3); MAGNESIUM 2.4 mg/dL (1.8-2.4); PHOSPHOROUS 3.6 mg/dL (2.5-4.9); TOT PROT 6.5 g/dl (6.4-8.2)
[2018-12-16] MEDS: ENOXAPARIN NA (PORCINE) 40 MG/0.4 ML DISP.SYRIN SQ SCH (09:50)
[2018-12-16] MEDS: predniSONE 20 MG TABLET (UD) PO SCH (09:50)
[2018-12-16] MEDS: amLODIPine BESYLATE 5 MG TABLET (FP) PO SCH (09:51)
[2018-12-16] MEDS: AZITHROMYCIN 250 MG TABLET PO SCH (09:51)
--- NOTE | 2018-12-16 11:09 | PN ---
Physical Exam: SUBJECTIVE: Patient seen and examined, denies any dizziness or weakness, Feels markedly better. No concerns. OBJECTIVE: Vital Signs Period Temp Pulse Resp BP Sys/Houser Pulse Ox Last 24 Hr 97.4 F-98.5 F 47-81 20-20 120-148/55-62 94 Intake & Output 12/13/18 12/14/18 12/15/18 12/16/18 23:59 23:59 23:59 23:59 Intake Total 5 900 Balance 1924 900 Weight 341 lb 11.464 oz 152 lb General: lying in bed in no acute distress HEENT: PERRL, EOMI, normocephalic, atraumatic Neck: soft, supple, no JVD Chest: CTAb, no rales or wheezing Abdomen: soft, NT, ND, pos bowel sounds Extremities: no pedal edema or calf tenderness Psych: pleasant, co-operative telemetry: sinus ari 40s night time, Laboratory Results - last 24 hr 12/15/18 12/15/18 12/16/18 10:20 10:20 06:00 WBC 7.2 RBC 4.31 Hgb 13.2 Hct 39.9 MCV 92.6 MCH 30.7 MCHC 33.2 RDW 14.0 Plt Count 207 MPV 9.6 Absolute Neuts (auto) 4.4 Neutrophils % 60.4 Lymphocytes % 26.9 Monocytes % 11.4 H Eosinophils % 0.9 Basophils % 0.4 Nucleated RBC % 0 Sodium Potassium Chloride Carbon Dioxide Anion Gap BUN Creatinine Est GFR (CKD-EPI)AfAm Est GFR (CKD-EPI)NonAf Random Glucose Calcium Phosphorus Magnesium Total Bilirubin AST ALT Alkaline Phosphatase Total Protein Albumin Urine Color Yellow Urine Appearance Clear Urine pH 6.0 Ur Specific [place] 1.010 Urine Protein Negative Urine Glucose (UA) Negative Urine Ketones Negative Urine Blood Negative Urine Nitrite Negative Urine Bilirubin Negative Urine Urobilinogen 0.2 Ur Leukocyte Esterase Negative Influenza A (Rapid) Negative Influenza B (Rapid) Negative 12/16/18 06:00 WBC RBC Hgb Hct MCV MCH MCHC RDW Plt Count MPV Absolute Neuts (auto) Neutrophils % Lymphocytes % Monocytes % Eosinophils % Basophils % Nucleated RBC % Sodium 140 Potassium 4.0 Chloride 108 H Carbon Dioxide 25 Anion Gap 7 L BUN 11.5 Creatinine 0.6 Est GFR (CKD-EPI)AfAm 105.54 Est GFR (CKD-EPI)NonAf 91.06 Random Glucose 92 Calcium 9.3 Phosphorus 3.6 Magnesium 2.4 Total Bilirubin 0.4 AST 14 L ALT 25 Alkaline Phosphatase 97 Total Protein 6.5 Albumin 3.2 L Urine Color Urine Appearance Urine pH Ur Specific [place] Urine Protein Urine Glucose (UA) Urine Ketones Urine Blood Urine Nitrite Urine Bilirubin Urine Urobilinogen Ur Leukocyte Esterase Influenza A (Rapid) Influenza B (Rapid) Active Medications Generic Name Dose Route Start Last Admin Trade Name Az PRN Reason Stop Dose Admin Albuterol/Ipratropium 1 amp 12/15/18 00:44 Duoneb - NEB RQID PRN SHORTNESS OF BREATH Amlodipine Besylate 5 mg 12/16/18 10:00 12/16/18 09:51 Norvasc - PO 5 mg DAILY ISIDRO Administration Azithromycin 500 mg 12/16/18 10:00 12/16/18 09:51 Zithromax - PO 12/18/18 10:01 500 mg DAILY ISIDRO Administration Enoxaparin Sodium 40 mg 12/15/18 10:00 12/16/18 09:50 Lovenox - SQ 40 mg DAILY ISIDRO Administration Sodium Chloride 1,000 mls @ 75 mls/hr 12/15/18 13:00 12/15/18 14:26 1/2 Normal Saline IV 75 mls/hr ASDIR ISIDRO Administration Prednisone 40 mg 12/15/18 10:00 12/16/18 09:50 Deltasone - PO 40 mg DAILY ISIDRO Administration ASSESSMENT/PLAN: 73 yof with PMhx of HTN, Hypothyroidism, Arthritis, Anemia, Hiatal hernia, admitted with syncope while eating in the setting of recent URI and poor oral intake. -Syncope, while eating, ?vasovagal compounded by hypovolumia from recent poor oral intake/URI like illness, r/o arrhythmia, less likely neurological etiology , -Hypoxia, likely from URI like illness/bronchitis, PE ruled out -URI like illness with bronchitis -Congestive changes on CXR -HTN -Hypothyroidism -Anemia -Hiatal hernia -Arthritis Plan: Orthostatics neg. ACS ruled out. Telemetry, sinus ari at night, patient reports occasional snoring, advised outpatient Sleep study. Check Thyroid function test. Cardiology input noted, follow up 2D echo. No concerns for volume overload. Gentle hydration, d.c Azithromycin 5 day course. Influenza screen neg, follow up RVP. CTA chest neg for concerns. Short prednisone course. Continue Amlodipine/ levothyroxine. GIPPX protonix DVTPPX lovenox PT eval, ambulatory oxygen needs assessment. Dispo in 24 hours if continues to improve and work up non concerning. Discussed with patient and nursing, all questions answered. Visit type - Emergency Visit Emergency Visit: Yes ED Registration Date: 12/14/18 Care time: The patient presented to the Emergency Department on the above date and was hospitalized for further evaluation of their emergent condition. - New Patient This patient is new to me today: No - Critical Care Critical Care patient: No - Discharge Referral Referred to [facility] Med P.C.: No
--- NOTE | 2018-12-16 11:18 | PN ---
Progress Note (short form) - Note Progress Note: s: no cp sob palps dizzy Current Medications Generic Name Dose Route Start Last Admin Trade Name Freq PRN Reason Stop Dose Admin Albuterol/Ipratropium 1 amp 12/15/18 00:44 Duoneb - NEB RQID PRN SHORTNESS OF BREATH Amlodipine Besylate 5 mg 12/16/18 10:00 12/16/18 09:51 Norvasc - PO 5 mg DAILY ISIDRO Administration Azithromycin 500 mg 12/16/18 10:00 12/16/18 09:51 Zithromax - PO 12/18/18 10:01 500 mg DAILY ISIDRO Administration Enoxaparin Sodium 40 mg 12/15/18 10:00 12/16/18 09:50 Lovenox - SQ 40 mg DAILY ISIDRO Administration Sodium Chloride 1,000 mls @ 75 mls/hr 12/15/18 13:00 12/15/18 14:26 1/2 Normal Saline IV 75 mls/hr ASDIR ISIDRO Administration Prednisone 40 mg 12/15/18 10:00 12/16/18 09:50 Deltasone - PO 40 mg DAILY ISIDRO Administration Vital Signs Period Temp Pulse Resp BP Sys/Houser Pulse Ox Last 24 Hr 97.4 F-98.5 F 47-81 20-20 120-148/55-62 94 nad no jvd rrr s1s2 no mrg ctabl nl eff aao3 no le e/c/c abd nt nd pos bs no jaundice diaphoresis CBC, BMP 12/16/18 06:00 12/16/18 06:00 tele: sr ecg: sr nl intervals no ischemic changes cxr: no sig chf a/p: 73 f hx htn here with syncope. syncope: -seems vasovagal due to decreased po intake -cont ivfs, tx of URI/PNA -no signs acs, arrhythmia, chf -tele benign, ortho vitals wnl. echo pending htn: -cont home norvasc
--- NOTE | 2018-12-16 16:55 | EKG ---
Test Reason : Blood Pressure : / mmHG Vent. Rate : 055 BPM Atrial Rate : 055 BPM P-R Int : 160 ms QRS Dur : 092 ms QT Int : 476 ms P-R-T Axes : 055 -15 048 degrees QTc Int : 455 ms SINUS BRADYCARDIA OTHERWISE NORMAL ECG WHEN COMPARED WITH ECG OF 13-OCT-2016 06:15, NO SIGNIFICANT CHANGE WAS FOUND Confirmed by GENE SIERRA MD ([id number]) on 12/16/2018 4:55:36 PM Referred By: Confirmed By:GENE SIERRA MD
[2018-12-17] MEDS ORDERED: LEVOTHYROXINE NA 25 MCG TABLET (FP) PO SCH (07:00)
[2018-12-17] MEDS: AZITHROMYCIN 250 MG TABLET PO SCH (09:40)
[2018-12-17] MEDS: predniSONE 20 MG TABLET (UD) PO SCH (09:40)
[2018-12-17] MEDS: amLODIPine BESYLATE 5 MG TABLET (FP) PO SCH (09:41)
[2018-12-17] MEDS: ENOXAPARIN NA (PORCINE) 40 MG/0.4 ML DISP.SYRIN SQ SCH (09:41)
--- NOTE | 2018-12-17 10:51 | PN ---
Progress Note (short form) - Note Progress Note: s: no cp sob palps dizzy Current Medications Generic Name Dose Route Start Last Admin Trade Name Freq PRN Reason Stop Dose Admin Albuterol/Ipratropium 1 amp 12/15/18 00:44 Duoneb - NEB RQID PRN SHORTNESS OF BREATH Amlodipine Besylate 5 mg 12/16/18 10:00 12/17/18 09:41 Norvasc - PO 5 mg DAILY ISIDRO Administration Azithromycin 500 mg 12/16/18 10:00 12/17/18 09:40 Zithromax - PO 12/18/18 10:01 500 mg DAILY ISIDRO Administration Enoxaparin Sodium 40 mg 12/15/18 10:00 12/17/18 09:41 Lovenox - SQ 40 mg DAILY ISIDRO Administration Levothyroxine Sodium 25 mcg 12/17/18 07:00 Synthroid - PO 0700 ISIDRO Prednisone 40 mg 12/15/18 10:00 12/17/18 09:40 Deltasone - PO 40 mg DAILY ISIDRO Administration Vital Signs Period Temp Pulse Resp BP Sys/Houser Pulse Ox Last 24 Hr 97.7 F-98.2 F 41-64 18-20 117-158/62-67 96-96 nad no jvd rrr s1s2 no mrg ctabl nl eff aao3 no le e/c/c abd nt nd pos bs no jaundice diaphoresis CBC, BMP 12/16/18 06:00 12/16/18 06:00 tele: sr ecg: sr nl intervals no ischemic changes cxr: no sig chf a/p: 73 f hx htn here with syncope. syncope: -seems vasovagal due to decreased po intake -cont ivfs, tx of URI/PNA -no signs acs, arrhythmia, chf -tele benign, ortho vitals wnl. echo pending, if benign then ok for dc from cardiac pov with outpt f/u. htn: -cont home norvasc
--- NOTE | 2018-12-17 11:43 | PN ---
Physical Exam: SUBJECTIVE: Patient seen and examined, feels much better, no dizziness, eating better. Eager to go home. OBJECTIVE: Vital Signs Period Temp Pulse Resp BP Sys/Houser Pulse Ox Last 24 Hr 97.7 F-98.2 F 41-64 18-20 117-158/62-67 96-96 Intake & Output 12/14/18 12/15/18 12/16/18 12/17/18 23:59 23:59 23:59 23:59 Intake Total 1924 1819 240 Balance 1924 1819 240 Weight 341 lb 11.464 oz 152 lb General: lying in bed in no acute distress HEENT: PERRL, EOMI, normocephalic, atraumatic Neck: soft, supple, no JVD Chest: CTAb, no rales or wheezing Abdomen: soft, NT, ND, pos bowel sounds Extremities: no pedal edema or calf tenderness Psych: pleasant, co-operative telemetry: sinus ari 40s night time, Laboratory Results - last 24 hr 12/16/18 06:00 Sodium 140 Potassium 4.0 Chloride 108 H Carbon Dioxide 25 Anion Gap 7 L BUN 11.5 Creatinine 0.6 Est GFR (CKD-EPI)AfAm 105.54 Est GFR (CKD-EPI)NonAf 91.06 Random Glucose 92 Calcium 9.3 Phosphorus 3.6 Magnesium 2.4 Total Bilirubin 0.4 AST 14 L ALT 25 Alkaline Phosphatase 97 Total Protein 6.5 Albumin 3.2 L TSH 1.89 Free T4 1.06 Active Medications Generic Name Dose Route Start Last Admin Trade Name Freq PRN Reason Stop Dose Admin Albuterol/Ipratropium 1 amp 12/15/18 00:44 Duoneb - NEB RQID PRN SHORTNESS OF BREATH Amlodipine Besylate 5 mg 12/16/18 10:00 12/17/18 09:41 Norvasc - PO 5 mg DAILY ISIDRO Administration Azithromycin 500 mg 12/16/18 10:00 12/17/18 09:40 Zithromax - PO 12/18/18 10:01 500 mg DAILY ISIDRO Administration Enoxaparin Sodium 40 mg 12/15/18 10:00 12/17/18 09:41 Lovenox - SQ 40 mg DAILY ISIDRO Administration Levothyroxine Sodium 25 mcg 12/17/18 07:00 Synthroid - PO 0700 ISIDRO Prednisone 40 mg 12/15/18 10:00 12/17/18 09:40 Deltasone - PO 40 mg DAILY ISIDRO Administration ASSESSMENT/PLAN: 73 yof with PMhx of HTN, Hypothyroidism, Arthritis, Anemia, Hiatal hernia, admitted with syncope while eating in the setting of recent URI and poor oral intake. -Syncope, while eating, ?vasovagal compounded by hypovolumia from recent poor oral intake/URI like illness, r/o arrhythmia, less likely neurological etiology , -Hypoxia, likely from URI like illness/bronchitis, PE ruled out -URI like illness with bronchitis -Congestive changes on CXR -HTN -Hypothyroidism -Anemia -Hiatal hernia -Arthritis Plan: Orthostatics neg. ACS ruled out. Telemetry, sinus ari at night, patient reports occasional snoring, advised outpatient Sleep study. TSH WNL. Cardiology input noted, follow up 2D echo. No concerns for volume overload. Gentle hydration, dced dc azithromycin after today. Influenza screen neg, follow up RVP. CTA chest neg for concerns. Short prednisone course. Continue Amlodipine/ levothyroxine. GIPPX protonix DVTPPX lovenox PT eval noted, no home oxygen needs. Dispo home later today if 2D echo non concerning and no new events. Discussed with patient and nursing, all questions answered. Visit type - Emergency Visit Emergency Visit: Yes ED Registration Date: 12/14/18 Care time: The patient presented to the Emergency Department on the above date and was hospitalized for further evaluation of their emergent condition. - New Patient This patient is new to me today: No - Critical Care Critical Care patient: No - Discharge Referral Referred to [facility] Med P.C.: No
[2018-12-17 11:47] VITALS: BP 139/61; PULSE 48; TEMP 97.8
--- NOTE | 2018-12-17 12:20 | ECHO ---
Name: SANTIAGO FRANCOIS Exam:Adult Echocardiogram Study Date: 12/17/2018 10:18 AM Age: 73 yrs Reason For Study: SYNCOPE Height: 62 in Weight: 152 lb BSA: 1.7 m2 MMode/2D Measurements & Calculations IVSd: 0.98 cm Ao root diam: 2.7 cm LVIDd: 4.2 cm LA dimension: 4.2 cm LVIDs: 2.9 cm LVPWd: 0.98 cm EDV(Teich): 77.0 ml LVOT diam: 2.0 cm ESV(Teich): 33.1 ml LAV (MOD-bp): 50.8 ml Doppler Measurements & Calculations MV E max robb: 64.9 cm/sec Ao V2 max: 190.7 cm/sec MV A max robb: 80.8 cm/sec Ao max P.5 mmHg MV E/A: 0.80 AI P1/2t: 1164 msec MV dec time: 0.24 sec PARKER(V,D): 2.5 cm2 AI max robb: 294.5 cm/sec LV V1 max P.6 mmHg AI max P.7 mmHg LV V1 max: 154.9 cm/sec AI dec slope: 74.1 cm/sec2 MR max robb: 541.9 cm/sec TR max robb: 283.0 cm/sec MR max P.7 mmHg TR max P.2 mmHg PA V2 max: 96.4 cm/sec Med Peak E' Robb: 7.1 cm/sec PA max P.7 mmHg Med E/e': 9.2 Lat Peak E' Robb: 7.7 cm/sec Lat E/e': 8.4 PI Vmax: 138.5 cm/sec Procedure A complete two-dimensional transthoracic echocardiogram was performed (2D, M-mode, Doppler and color flow Doppler). Left Ventricle The left ventricle is normal in size. Left ventricular systolic function is normal. Ejection Fraction = 60- 65%. No regional wall motion abnormalities noted. Right Ventricle The right ventricle is normal size. The right ventricular systolic function is normal. Atria The left atrium is mildly dilated. The right atrium is mildly dilated. Mitral Valve There is mild mitral annular calcification. There is moderate mitral regurgitation. Tricuspid Valve The tricuspid valve is normal in structure and function. There is moderate tricuspid regurgitation. Aortic Valve There is mild aortic sclerosis.;. No aortic regurgitation is present. Pulmonic Valve The pulmonic valve is not well visualized. Great Vessels The aortic root is normal size. Pericardium/Pleura There is no pericardial effusion. Interpretation Summary The left ventricle is normal in size. Left ventricular systolic function is normal. No regional wall motion abnormalities noted. Ejection Fraction = 60-65%. The right ventricular systolic function is normal. The left atrium is mildly dilated. The right atrium is mildly dilated. There is mild mitral annular calcification. There is moderate mitral regurgitation. There is moderate tricuspid regurgitation. There is mild aortic sclerosis. There is no pericardial effusion. Previous study is not available for comparison Kimani Nunez MD 12/17/2018 12:20 PM
[2018-12-17] MEDS ORDERED: PT OWN MED DRAWER 7, Y5N ONE (12:28)
--- NOTE | 2018-12-17 13:18 | DS ---
Physical Exam: SUBJECTIVE: Patient seen and examined, feels much better, no dizziness, eating better. Eager to go home. OBJECTIVE: Vital Signs Period Temp Pulse Resp BP Sys/Houser Pulse Ox Last 24 Hr 97.7 F-98.2 F 41-55 18-22 117-158/61-67 96-99 Intake & Output 12/14/18 12/15/18 12/16/18 12/17/18 23:59 23:59 23:59 23:59 Intake Total 1924 1819 240 Balance 1924 1819 240 Weight 341 lb 11.464 oz 152 lb PHYSICAL EXAM General: lying in bed in no acute distress HEENT: PERRL, EOMI, normocephalic, atraumatic Neck: soft, supple, no JVD Chest: CTAb, no rales or wheezing Abdomen: soft, NT, ND, pos bowel sounds Extremities: no pedal edema or calf tenderness Psych: pleasant, co-operative telemetry: sinus ari 40s night time, LABS Laboratory Last Values WBC 7.2 K/mm3 (4.0-10.0) 12/16/18 06:00 RBC 4.31 M/mm3 (3.60-5.2) 12/16/18 06:00 Hgb 13.2 GM/dL (10.7-15.3) 12/16/18 06:00 Hct 39.9 % (32.4-45.2) 12/16/18 06:00 MCV 92.6 fl (80-96) 12/16/18 06:00 MCH 30.7 pg (25.7-33.7) 12/16/18 06:00 MCHC 33.2 g/dl (32.0-36.0) 12/16/18 06:00 RDW 14.0 % (11.6-15.6) 12/16/18 06:00 Plt Count 207 K/MM3 (134-434) 12/16/18 06:00 MPV 9.6 fl (7.5-11.1) 12/16/18 06:00 Absolute Neuts (auto) 4.4 K/mm3 (1.5-8.0) 12/16/18 06:00 Neutrophils % 60.4 % (42.8-82.8) 12/16/18 06:00 Lymphocytes % 26.9 % (8-40) 12/16/18 06:00 Monocytes % 11.4 % (3.8-10.2) H 12/16/18 06:00 Eosinophils % 0.9 % (0-4.5) 12/16/18 06:00 Basophils % 0.4 % (0-2.0) 12/16/18 06:00 Nucleated RBC % 0 % (0-0) 12/16/18 06:00 PT with INR 12.90 SEC (9.7-13.0) 12/14/18 20:00 INR 1.09 (0.83-1.09) 12/14/18 20:00 D-Dimer 886 ng/ml (0-500) H 12/15/18 01:45 Sodium 140 mmol/L (136-145) 12/16/18 06:00 Potassium 4.0 mmol/L (3.5-5.1) 12/16/18 06:00 Chloride 108 mmol/L (98-107) H 12/16/18 06:00 Carbon Dioxide 25 mmol/L (21-32) 12/16/18 06:00 Anion Gap 7 MMOL/L (8-16) L 12/16/18 06:00 BUN 11.5 mg/dL (7-18) 12/16/18 06:00 Creatinine 0.6 mg/dL (0.55-1.3) 12/16/18 06:00 Est GFR (CKD-EPI)AfAm 105.54 12/16/18 06:00 Est GFR (CKD-EPI)NonAf 91.06 12/16/18 06:00 Random Glucose 92 mg/dL (74-106) 12/16/18 06:00 Lactic Acid 1.0 mmol/L (0.4-2.0) 12/15/18 01:46 Calcium 9.3 mg/dL (8.5-10.1) 12/16/18 06:00 Phosphorus 3.6 mg/dL (2.5-4.9) 12/16/18 06:00 Magnesium 2.4 mg/dL (1.8-2.4) 12/16/18 06:00 Total Bilirubin 0.4 mg/dL (0.2-1) 12/16/18 06:00 AST 14 U/L (15-37) L 12/16/18 06:00 ALT 25 U/L (13-61) 12/16/18 06:00 Alkaline Phosphatase 97 U/L (45-117) 12/16/18 06:00 Troponin I < 0.02 ng/ml (0.00-0.05) 12/14/18 20:00 B-Natriuretic Peptide 150.5 pg/ml (5-125) H 12/15/18 05:52 Total Protein 6.5 g/dl (6.4-8.2) 12/16/18 06:00 Albumin 3.2 g/dl (3.4-5.0) L 12/16/18 06:00 TSH 1.89 uIU/ml (0.358-3.74) 12/16/18 06:00 Free T4 1.06 ng/dl (0.76-1.46) 12/16/18 06:00 Urine Color Yellow 12/15/18 10:20 Urine Appearance Clear 12/15/18 10:20 Urine pH 6.0 (5.0-8.0) 12/15/18 10:20 Ur Specific [place] 1.010 (1.010-1.035) 12/15/18 10:20 Urine Protein Negative (NEGATIVE) 12/15/18 10:20 Urine Glucose (UA) Negative (NEGATIVE) 12/15/18 10:20 Urine Ketones Negative (NEGATIVE) 12/15/18 10:20 Urine Blood Negative (NEGATIVE) 12/15/18 10:20 Urine Nitrite Negative (NEGATIVE) 12/15/18 10:20 Urine Bilirubin Negative (NEGATIVE) 12/15/18 10:20 Urine Urobilinogen 0.2 mg/dL (0.2-1.0) 12/15/18 10:20 Ur Leukocyte Esterase Negative (NEGATIVE) 12/15/18 10:20 Influenza A (Rapid) Negative (Negative) 12/15/18 10:20 Influenza B (Rapid) Negative (Negative) 12/15/18 10:20 CT head: CT scan of the head without intravenous contrast. Compared to prior examination dated 04/08/2008 There is mild volume loss and ventricular dilatation. No mass lesion, gross acute infarct or intracranial hemorrhage are identified. There is no shift of the midline structures. Mild deviation of the nasal septum to the left. Visualized paranasal sinuses and mastoid air cells are well aerated. The calvarium is intact Impression: Mild volume loss and ventricular dilatation without CT evidence of acute intracranial pathology. Correlate clinically to determine further evaluation and follow-up. CTA chest: FINDINGS: Small hiatal hernia There is no acute pulmonary emboli. There is no hilar, mediastinal or axillary lymphadenopathy. There is no pleural or pericardial effusion. There is no thoracic aortic aneurysm. There are no infiltrates, pulmonary masses or nodules. There are no adrenal masses. IMPRESSION: No evidence of acute pulmonary emboli. Small hiatal hernia HOSPITAL COURSE: Date of Admission:12/14/18 Date of Discharge: 12/17/18 Minutes to complete discharge: 42 Discharge Summary Problems reviewed: Yes Reason For Visit: SYNCOPE,PNEUMONIA Current Active Problems -Syncope, while eating, ?vasovagal compounded by hypovolumia from recent poor oral intake/URI like illness, r/o arrhythmia, less likely neurological etiology , -Hypoxia, likely from URI like illness/bronchitis, PE ruled out -URI like illness with bronchitis -Congestive changes on CXR -HTN -Hypothyroidism -Anemia -Hiatal hernia -Arthritis Hospital Course: 73 yof with PMhx of HTN, Hypothyroidism, Arthritis, Anemia, Hiatal hernia, admitted with syncope while eating in the setting of recent URI and poor oral intake. The episode of was likely vasovagal compounded by poor oral intake from recent poor oral intake/URI like illness. She had CTA chest as above, that was negative pneumonia or pulmonary embolism. She was placed on gentle hydration and short course of azithromycin/prednisone. Her symptoms resolved. Her telemetry was noted with night time sinus bradycardia 40s, she was seen by cardiology. She had 2D echo showing normal LV size, systolic function, EF 60-65% , mildly dilated right atrium and left atrium moderate mitral regurgitation, moderate tricuspid regurgitation, mild aortic sclerosis, no pericardial effusion. She is advised outpatient sleep study. She was evaluated physical therapy and also noted with no home oxygen needs on discharge. She will be discharged in stable condition with outpatient PCP and cardiology follow up. Condition: Stable - Instructions Diet, Activity, Other Instructions: You were seen here due to fainting while eating. You were noted with low oxygen likely from viral infection and bronchitis. You had CT scan of your chest that was negative for clot or pneumonia. You had 2D echocardiogram and were seen by cardiology. Your oxygenation is stable condition. MEDICATIONS: Please continue to take your regular home medications as below: Norvasc 5mg daily Synthroid 25mcg daily No need for further antibiotics INSTRUCTIONS: Maintain adequate hydration Avoid sudden changes in position Avoid driving till your next doctor visit. Follow-up: Please follow-up with your primary care provider, Dr. Gaxiola, in 1 week to update him on your care Sleep study outpatient, please discuss with your doctor. Follow up with lead mason tender Dr. Cerda in 1-2 weeks If you notice fevers, chills, trouble breathing, dizziness or any new concerns, please call 911 or come to the ED. Referrals: Barron Gaxiola MD [Primary Care Provider] - José Manuel Cerda MD [Staff Physician] - Disposition: HOME - Home Medications Comprehensive Discharge Medication List: Ambulatory Orders Amlodipine Besylate [Norvasc -] 5 mg PO DAILY 12/09/17 Multivit-Min/Iron/Folic/Lutein [Centrum Silver Women Tablet] 1 each PO DAILY Levothyroxine [Synthroid -] 25 mcg PO DAILY 12/14/18 This patient is new to me today: No Emergency Visit: Yes ED Registration Date: 12/14/18 Care time: The patient presented to the Emergency Department on the above date and was hospitalized for further evaluation of their emergent condition. Critical Care patient: No - Discharge Referral Referred to [facility] Med P.C.: No
== END 2018-12-17 13:55 | disposition home or self-care (01) | DRG 312 ==
LOC: JER 19:04 → JERBED 21:51 → J4W 12-15 00:43
PROVIDERS: ADMIT Internal Medicine; ATTEND Hospitalist
DX: R55 Syncope and collapse (principal); I10 Essential (primary) hypertension; E03.9 Hypothyroidism, unspecified; E66.9 Obesity, unspecified; Z68.27 Body mass index [BMI] 27.0-27.9, adult; J06.9 Acute upper respiratory infection, unspecified; K44.9 Diaphragmatic hernia without obstruction or gangrene; D64.9 Anemia, unspecified; R09.02 Hypoxemia; M19.90 Unspecified osteoarthritis, unspecified site; J40 Bronchitis, not specified as acute or chronic; E86.0 Dehydration; E86.1 Hypovolemia
CPT/HCPCS: 36415; 70450-TC; 71045-TC-FY; 71275-TC; 80048; 80053; 81003; 83605; 83735; 83880; 84100; 84439; 84443; 84484; 85025; 85379; 85610; 87633; 87804; 93005; 93010; 93306-TC; 94761; 97116-GP; 97161-GP; 99284-25; G0008; J7030; Q2036; Q9967

== ENCOUNTER 2021-03-31 10:58 | Emergency (ER) | payer OTHER ==
[2021-03-31] MEDS ORDERED: IBUPROFEN 400 MG TABLET (FP) PO ONE (11:05)
[2021-03-31] MEDS ORDERED: ACETAMINOPHEN 325 MG TABLET (FP) PO ONE (11:10)
[2021-03-31 11:22] VITALS: BP 130/72; PULSE 58; TEMP 99.2; BMI 4133.6
[2021-03-31] MEDS ORDERED: ACETAMINOPHEN 325 MG TABLET (FP) ONE (11:24)
[2021-04-01 12:08] LABS: SARS-CoV-2 NAA Detected (Not Detected)
== END 2021-03-31 11:44 | disposition home or self-care (01) ==
LOC: FER 10:58
DX: U07.1 COVID-19 (principal); R05.1 Acute cough
CPT/HCPCS: 99283-25; C9803; U0003; U0005

== ENCOUNTER 2021-12-06 12:20 | Emergency (ER) | payer OTHER ==
[2021-12-06] MEDS ORDERED: dilTIAZem HCL 30 MG TABLET PO ONE (12:31)
[2021-12-06] MEDS ORDERED: SODIUM CHLORIDE 0.9% 1000 ML INFUS.BAG IV ONE (12:31)
[2021-12-06] MEDS ORDERED: dilTIAZem HCL 50 MG/10 ML - 10 ML VIAL IVPUSH ONE (12:31)
[2021-12-06 12:36] VITALS: TEMP 99; BMI 28.7
[2021-12-06] MEDS ORDERED: dilTIAZem HCL 30 MG TABLET ONE (12:36)
[2021-12-06] MEDS ORDERED: dilTIAZem HCL 50 MG/10 ML - 10 ML VIAL ONE (12:37)
[2021-12-06 13:15] LABS: HEMATOCRIT 48.9 % (32.4-45.2); HEMOGLOBIN 17.1 G/dL (10.7-15.3); MCH 31.8 pg (25.7-33.7); MCHC 34.9 g/dl (32.0-36.0); MEAN CELL VOLUME 91.1 fl (80-96); MEAN PLT VOLUME 8.6 fl (7.5-11.1); PLATELET COUNT 232.4 10^3/uL (134-434); RBC 5.37 10^6/uL (3.60-5.2); RDW 14.7 % (11.6-15.6); WHITE BLOOD COUNT 6.5 10^3/uL (4.0-10.8)
[2021-12-06 13:25] LABS: ALBUMIN 4.2 g/dl (3.4-5.0); BILIRUBIN,TOTAL 0.6 mg/dl (0.2-1); CALCIUM 10.1 mg/dl (8.5-10); CREATININE 0.7 mg/dl (0.55-1.3); TOT PROT 8.2 g/dl (6.4-8.2)
[2021-12-06 13:58] VITALS: PULSE 49
[2021-12-06 14:52] VITALS: BP 142/55; RESP 18
== END 2021-12-06 15:04 | disposition home or self-care (01) ==
LOC: FER 12:20
DX: I48.0 Paroxysmal atrial fibrillation (principal)
CPT/HCPCS: 0241U-QW; 36415; 80053; 84443; 85027; 93005; 93010; 99284-25

== ENCOUNTER 2022-10-09 17:40 | Emergency (ER) | payer OTHER ==
[2022-10-09 17:47] VITALS: TEMP 97.7; BMI 28.3
[2022-10-09 18:34] LABS: EPITHELIAL CELLS FEW /hpf
[2022-10-09 20:02] VITALS: BP 180/75; PULSE 55; RESP 16
[2022-10-09] MEDS ORDERED: IBUPROFEN 600 MG TABLET (FP) PO ONE ×2 (20:07→20:08)
== END 2022-10-09 20:39 | disposition home or self-care (01) ==
LOC: FER 17:40
DX: R10.9 Unspecified abdominal pain (principal); N39.0 Urinary tract infection, site not specified
CPT/HCPCS: 74176-TC; 81003; 81015; 87086; 99284-25

== ENCOUNTER → 2023-01-25 | Day surgery (SDC) | payer OTHER | END | disposition home or self-care (01) | LOC: JRADUS-SUR 12:42 | PROVIDERS: ATTEND Obstetrics & Gynecology | PROC: 0H9T3ZX Drainage of Right Breast, Percutaneous Approach, Diagnostic (ICD-10-PCS; principal; 2023-01-25) | DX: D24.1 Benign neoplasm of right breast (principal) | CPT/HCPCS: 19083; 87899; A4648 ==

== ENCOUNTER 2023-11-08 16:30 | Emergency (ER) | payer OTHER ==
[2023-11-08 16:49] VITALS: BMI 28.3
[2023-11-08 18:20] LABS: HEMATOCRIT 44.9 % (32.4-45.2); HEMOGLOBIN 14.5 G/dL (10.7-15.3); MCH 30.4 pg (25.7-33.7); MCHC 32.2 g/dl (32.0-36.0); MEAN CELL VOLUME 94.3 fl (80-96); MEAN PLT VOLUME 9.1 fl (7.5-11.1); PLATELET COUNT 177.3 10^3/uL (134-434); RBC 4.76 10^6/uL (3.60-5.2); WHITE BLOOD COUNT 5.8 10^3/uL (4.0-10.8)
[2023-11-08 18:41] LABS: ALBUMIN 4.1 g/dl (3.4-5.0); ALK PHOS 63 U/L (45-117); ANION GAP 7 mmol/L (4-13); BILIRUBIN,TOTAL 0.4 mg/dl (0.2-1); CALCIUM 9.6 mg/dl (8.5-10.1); CHLORIDE 106 mmol/L (98-107); CO2 25 mmol/L (21-32); CREATININE 0.8 mg/dl (0.6-1.3); GLUCOSE,RANDOM 82 mg/dl (74-106); SGOT/AST 16 U/L (15-37); SGPT/ALT 13 U/L (7-52); SODIUM 138 mmol/L (136-145); TOT PROT 7.2 g/dl (6.4-8.2)
[2023-11-08 19:04] LABS: PLATELET ESTIMATE ADEQUATE
[2023-11-08 19:40] VITALS: BP 173/60; PULSE 48; RESP 16; TEMP 100
== END 2023-11-08 20:00 | disposition home or self-care (01) ==
LOC: FER 16:30
DX: R10.31 Right lower quadrant pain (principal); R19.7 Diarrhea, unspecified
CPT/HCPCS: 36415; 74176-TC; 80053; 81003; 81015; 83690; 85027; 87086; 99284-25